=== PATIENT | female | born 1980 | race Caucasian/White ===

== ENCOUNTER 2016-04-20 11:43 | Emergency (ER) | payer MEDICAID ==
[2016-04-20] MEDS ORDERED: KETOROLAC 30 MG/ML VIAL (J1885) As Ordered ONE (12:47)
[2016-04-20] MEDS ORDERED: ONDANSETRON 4MG/2ML VIAL (J2405) As Ordered ONE (12:47)
[2016-04-20 13:05] LABS: BASO # 0.2 K/mm3 (0.0-0.2); BASO % 1.5 % (0.0-1.0); EOS # 0.3 K/mm3 (0.0-0.50); EOS % 3.5 % (0.0-3.0); LARGE UNSTAINED CELL # 0.2 K/mm3 (0.0-0.4); LARGE UNSTAINED CELL % 2.1 % (0.0-4.0); LYMPH % 28.5 % (24.0-44.0); MEAN CORPUSCULAR HEMOGLOBIN 30.7 pg (27.0-33.0); MEAN CORPUSCULAR HGB CONC 31.4 g/dl (32.0-36.5); MEAN CORPUSCULAR VOLUME 97.8 fl (80.0-96.0); MONO # 0.4 K/mm3 (0.0-0.8); MONO % 3.8 % (0.0-5.0); NEUTROPHILS # 5.9 K/mm3 (1.8-7.7); NEUTROPHILS % 60.6 % (36.0-66.0); PLATELET COUNT, AUTOMATED 200 k/mm3 (150-450); RED CELL DISTRIBUTION WIDTH 13.8 % (11.5-14.5); WHITE BLOOD COUNT 9.7 K/mm3 (4.0-10.0)
--- NOTE | 2016-04-20 13:27 | REP ---
CT abdomen and pelvis without IV or oral contrast: Renal stone protocol. History: Renal colic. CT findings: Digital laboratory animal facility supervisor radiograph demonstrates tubal ligation clamps bilaterally in the pelvis. Axial CT images demonstrate that the lung bases are clear. The liver and the spleen are normal in size, homogeneous in texture. There is a low-density lesion in the region of the right adrenal gland consistent with a benign adenoma. This measures 2 cm in greatest diameter. It has a mean noncontrast CT Hounsfield unit density of -3. The left adrenal is normal. No pancreatic abnormality is appreciated. No gallbladder abnormality is observed. 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 At mid polar level in the left kidney, there is a 8 mm calculus. There is no evidence of hydronephrosis of either renal moiety. No uterine abnormality is seen. No pelvic mass or adenopathy is seen. Urinary bladder is intact. Impression: 1. Horseshoe kidney anomaly. 2. 8 mm intrarenal calculus left renal moiety. 3. No hydronephrosis seen. 4. Status post tubal ligation. Signed by Brandon Jolly MD 04/20/2016 01:44 P
[2016-04-20 13:28] LABS: ALBUMIN 3.9 GM/DL (3.2-5.2); ALKALINE PHOSPHATASE 101 U/L (45-117); ALT/SGPT 18 U/L (12-78); AMYLASE 83 U/L (25-115); ANION GAP 6 MEQ/L (8-16); AST/SGOT 16 U/L (15-37); BILIRUBIN,DIRECT < 0.1 MG/DL (0.0-0.2); BILIRUBIN,TOTAL 0.5 MG/DL (0.2-1.0); BLOOD UREA NITROGEN 8 MG/DL (7-18); CALCIUM LEVEL 8.5 MG/DL (8.5-10.1); CARBON DIOXIDE LEVEL 27 MEQ/L (21-32); CHLORIDE LEVEL 107 MEQ/L (98-107); CREATININE FOR GFR 0.62 MG/DL (0.55-1.02); GLOMERULAR FILTRATION RATE > 60.0 (>60); GLUCOSE, FASTING 85 MG/DL (70-105); POTASSIUM SERUM 4.5 MEQ/L (3.5-5.1); SODIUM LEVEL 140 MEQ/L (136-145); TOTAL PROTEIN 7.8 GM/DL (6.4-8.2)
--- NOTE | 2016-04-20 13:43 | REP ---
RIGHT UPPER QUADRANT ULTRASOUND: Real-time sonographic evaluation of the right upper quadrant performed. Gallbladder demonstrates no evidence of intraluminal sludge or calculi, wall thickening, or pericholecystic fluid. There is no intrahepatic or extrahepatic biliary dilatation, common bile duct measuring 2 mm in diameter. Liver and pancreas demonstrate homogenous echotexture with no gross mass. Right kidney demonstrates no hydronephrosis with a length of 8.9 cm. There is no ascites. IMPRESSION: Essentially negative right upper quadrant ultrasound. Signed by Trevin Peck MD 04/20/2016 05:04 P
--- NOTE | 2016-04-20 13:56 | REP ---
PELVIC ULTRASOUND: Real-time sonographic evaluation of the pelvis is performed utilizing transabdominal and endovaginal technique. The urinary bladder is empty. The uterus measures 8.7 x 5.1 x 6.3 cm. There is a small amount of endometrial fluid. Endometrial thickness is 5 mm. The right ovary measures 3.3 x 2.7 x 2.1 cm and the left ovary 2.8 x 3.9 x 1.9 cm. Dominant follicle in the left ovary measures 1.9 cm in diameter. There is no other evidence of adnexal mass or free fluid. There is no evidence of ovarian torsion, with blood flow seen in each ovary with duplex Doppler evaluation, RI of the right ovary is 0.58 and the left ovary 0.38. No IUD is seen. IMPRESSION: Dominant follicle left ovary. No torsion or free fluid. Small amount of endometrial fluid. Signed by Trevin Peck MD 04/20/2016 05:04 P
--- NOTE | 2016-04-20 15:03 | EDDOCDS ---
Nurse's Notes [facility] Name: Veronica Michele Age: 35 yrs Sex: Female : 1980 Arrival Date: 04/20/2016 Time: 11:43 Bed I2 / M2 Private MD: Henrry Narayan N Diagnosis: Other ovarian cysts-Left;Calculus of kidney-8mm intrarenal calculus left renal moiety, no hydronephrosis, normal labs today;Upper abdominal pain, unspecified Presentation: 04/20 12:01 Presenting complaint: Patient states: cramping and spotting - pressure and pain in hs1 pelvis. Patient states was supposed to have a pelvic ultrasound because patient has been spotting and cramping for a couple weeks. Patient states when she walks the pain gets worse. Patient states mild nausea. Risk factors: the patient reports a small or scant amount of vaginal bleeding. Adult Sepsis Screening: The patient does not have new or worsening altered mentation. Patient's respiratory rate is less than 22. Systolic blood pressure is greater than 100. Patient has a qSOFA score of 0- Negative Sepsis Screen. Suicide/Homicide risk assessment- the patient denies having any suicidal and/or homicidal ideations and does not present with any other emotional, behavioral or mental health complaints. Status: Patient is not a assistant service manager or dependent. Transition of care: patient was not received from another setting of care. 12:01 Acuity: SAGE Level 3 hs1 12:01 Method Of Arrival: Walkin/Carried/Asstd hs1 Triage Assessment: 12:03 General: Appears uncomfortable, Behavior is appropriate for age, cooperative. Pain: hs1 Location: pelvis Pain currently is 10 out of 10 on a pain scale. HIV screening NA for this visit Offered previously. GI: Reports nausea. Historical: - Allergies: No known drug Allergies; - Home Meds: 1. gabapentin 300 mg Oral tab nightly 2. bupropion HCl 300 mg Oral Tb24 once daily (Last dose: 04/19/2016 10:00) - PMHx: Anxiety; Depression; Scoliosis; - PSHx: Tubal ligation; ; - Social history: Smoking status: Patient uses tobacco products, heavy tobacco smoker. No barriers to communication noted, The patient speaks fluent Congolese, Speaks appropriately for age. - Family history: Not pertinent. - : The pt / caregiver states he / she is not on anticoagulants. Home medication list is obtained from the patient. - Exposure Risk Screening:: None identified. Screenin:54 Screening information is obtained from the patient. Fall risk: No risks identified. jmk Assistance ADL's: requires no assistance with activities of daily living. Abuse/DV Screen: The patient / caregiver reports he/she is: not in a situation that causes fear, pain or injury. Nutritional screening: No deficits noted. Advance Directives: Currently, there is no health care proxy. There is no active DNR order. There is no living will. There is no Power of Pile Trimmer. Advance directive information has not previously been placed in an [facility] medical record. Further advance directive information is declined. home support is adequate. Assessment: 12:54 General: Appears skin warm and dry color satisfactory. Moist pink oral mucosa. Appears jmk NAD. Indicates diffuse abdominal pain . NON distended with bowel sounds present x 4. Respiratory: No deficits noted. Airway is patent Respiratory effort is even, unlabored, Respiratory pattern is regular. GI: Abdomen is flat, non- distended Bowel sounds present X 4 quads. Abd is soft X 4 quads Abd is tender to palpation in right upper quadrant, left upper quadrant, right lower quadrant and left lower quadrant. 14:59 General: Appears in no apparent distress, reports 5/10 discomfort. continues to present k as very casual in NAD. Vital Signs: 11:45 BP 122 / 80 RA Sitting (auto/reg); Pulse 76; Resp 18; Temp 97.0; Pulse Ox 100% ; Weight [facility] 47.63 kg (R); Height 5 ft. 3 in. (160.02 cm); Pain 10/10; 14:59 BP 96 / 52; Pulse 71; Resp 16; Temp 98.7; jmk 11:45 Body Mass Index 18.60 (47.63 kg, 160.02 cm) [facility] Vitals: 11:45 Log In Time: April 20, 2016 at 11:40. [facility] ED Course: 11:45 Patient visited by Koffi Canales PCA. jrd 11:45 Henrry Narayan is Private Physician. jrd 11:45 Patient moved to Waiting jrd 11:46 Patient visited by Koffi Canales PCA. jrd 11:46 Patient moved to Pre RCE jrd 12:03 Triage Initiated hs1 12:04 Patient moved to Triage 2 hs1 12:08 Jeanie Canela PA-C is PHCP. ef1 12:08 Mason Tomlin MD is Attending Physician. ef1 12:09 Patient visited by Jeanie Canela PA-C. ef1 12:28 Patient moved to I2 / M2 ml6 12:28 Patient moved to Triage 2 ar3 12:31 Patient moved to I2 / M2 ar3 12:40 Patient visited by Jeanie Canela PA-C. ef1 12:40 Patient moved to Ultrasound am17 12:52 Amylase Sent. jmk 12:53 Basic Metabolic Profile Sent. jmk 12:53 CBC with Diff Sent. jmk 12:53 Lipase Sent. jmk 12:53 Liver Profile Sent. jmk 12:54 The patient / caregiver is instructed regarding the plan of care and ED course. jmk 12:54 Inserted saline lock: 20 gauge in right antecubital area. jmk 12:56 Patient visited by Iker Muhammad RN. jmk 13:19 Patient moved to I2 / M2 am17 13:31 Patient visited by Jeanie Canela PA-C. ef1 13:32 CT ABD & PELVIS: No Contrast Returned. EDMS 13:44 Patient visited by Jeanie Canela PA-C. ef1 13:44 [facility] Payment Agreement was scanned into [employer] and attached to record. lg 14:08 CT ABD & PELVIS: No Contrast Returned. EDMS 14:08 Gallbladder US Returned. EDMS 14:08 -US Pelvic Non-Ob Complete Returned. EDMS 14:41 Henrry Narayan is Referral Physician. ef1 14:41 Kira Joyner MD is Referral Physician. ef1 14:41 Juan M Pacheco is Referral Physician. ef1 14:41 Trevin Burgess DO is Referral Physician. ef1 14:59 Discontinued lock intact, bleeding controlled, pressure dressing applied, No jmk redness/swelling at site. No procedures done that require assistance. Administered Medications: 12:54 Drug: NS 0.9% 1000 ml [sodium chloride 0.9 % intravenous solution] Route: IV; Rate: dls bolus; Site: right antecubital; 12:54 Drug: Ondansetron 4 mg [ondansetron HCl 2 mg/mL intravenous solution (2 mL)] Route: dls IVP; Site: right antecubital; 12:54 Drug: ketorolac 30 mg [ketorolac 30 mg/mL (1 mL) injection solution (1 mL)] Route: IVP; dls Site: right antecubital; Order Results: Lab Order: Amylase; SPEC'M 04/20/16 12:43 Test: AMYLASE; Value: 83; Range: 25-115; Units: U/L; Status: F Lab Order: Basic Metabolic Profile; SPEC'M 04/20/16 12:43 Test: GLUCOSE, FASTING; Value: 85; Range: 70-105; Units: MG/DL; Status: F Test: BLOOD UREA NITROGEN; Value: 8; Range: 7-18; Units: MG/DL; Status: F Test: CREATININE FOR GFR; Value: 0.62; Range: 0.55-1.02; Units: MG/DL; Status: F Test: GLOMERULAR FILTRATION RATE; Value: > 60.0; Range: >60; Status: F Test: SODIUM LEVEL; Value: 140; Range: 136-145; Units: MEQ/L; Status: F Test: POTASSIUM SERUM; Value: 4.5; Range: 3.5-5.1; Units: MEQ/L; Status: F Test: CHLORIDE LEVEL; Value: 107; Range: 98-107; Units: MEQ/L; Status: F Test: CARBON DIOXIDE LEVEL; Value: 27; Range: 21-32; Units: MEQ/L; Status: F Test: ANION GAP; Value: 6; Range: 8-16; Abnormal: Below low normal; Units: MEQ/L; Status: F Test: CALCIUM LEVEL; Value: 8.5; Range: 8.5-10.1; Units: MG/DL; Status: F Test Note: ; Units are mL/min/1.73 m2 Chronic Kidney Disease Staging per NKF: Stage I & II GFR >=60 Normal to Mildly Decreased Stage III GFR 30-59 Moderately Decreased Stage IV GFR 15-29 Severely Decreased Stage V GFR <15 Very Little GFR Left ESRD GFR <15 on BODS DEVELOPER Lab Order: CBC with Diff; SPEC'M 04/20/16 12:43 Test: WHITE BLOOD COUNT; Value: 9.7; Range: 4.0-10.0; Units: K/mm3; Status: F Test: RED BLOOD COUNT; Value: 4.88; Range: 4.00-5.40; Units: M/mm3; Status: F Test: HEMOGLOBIN; Value: 15.0; Range: 12.0-16.0; Units: g/dl; Status: F Test: HEMATOCRIT; Value: 47.7; Range: 36.0-47.0; Abnormal: Above high normal; Units: %; Status: F Test: MEAN CORPUSCULAR VOLUME; Value: 97.8; Range: 80.0-96.0; Abnormal: Above high normal; Units: fl; Status: F Test: MEAN CORPUSCULAR HEMOGLOBIN; Value: 30.7; Range: 27.0-33.0; Units: pg; Status: F Test: MEAN CORPUSCULAR HGB CONC; Value: 31.4; Range: 32.0-36.5; Abnormal: Below low normal; Units: g/dl; Status: F Test: RED CELL DISTRIBUTION WIDTH; Value: 13.8; Range: 11.5-14.5; Units: %; Status: F Test: PLATELET COUNT, AUTOMATED; Value: 200; Range: 150-450; Units: k/mm3; Status: F Test: NEUTROPHILS %; Value: 60.6; Range: 36.0-66.0; Units: %; Status: F Test: LYMPH %; Value: 28.5; Range: 24.0-44.0; Units: %; Status: F Test: MONO %; Value: 3.8; Range: 0.0-5.0; Units: %; Status: F Test: EOS %; Value: 3.5; Range: 0.0-3.0; Abnormal: Above high normal; Units: %; Status: F Test: BASO %; Value: 1.5; Range: 0.0-1.0; Abnormal: Above high normal; Units: %; Status: F Test: LARGE UNSTAINED CELL %; Value: 2.1; Range: 0.0-4.0; Units: %; Status: F Test: NEUTROPHILS #; Value: 5.9; Range: 1.8-7.7; Units: K/mm3; Status: F Test: LYMPH #; Value: 3.0; Range: 1.5-4.5; Units: K/mm3; Status: F Test: MONO #; Value: 0.4; Range: 0.0-0.8; Units: K/mm3; Status: F Test: EOS #; Value: 0.3; Range: 0.0-0.50; Units: K/mm3; Status: F Test: BASO #; Value: 0.2; Range: 0.0-0.2; Units: K/mm3; Status: F Test: LARGE UNSTAINED CELL #; Value: 0.2; Range: 0.0-0.4; Units: K/mm3; Status: F Lab Order: Lipase; [facility]' 04/20/16 12:43 Test: LIPASE; Value: 133; Range: 73-393; Units: U/L; Status: F Lab Order: Liver Profile; [facility] 04/20/16 12:43 Test: AST/SGOT; Value: 16; Range: 15-37; Units: U/L; Status: F Test: ALT/SGPT; Value: 18; Range: 12-78; Units: U/L; Status: F Test: ALKALINE PHOSPHATASE; Value: 101; Range: 45-117; Units: U/L; Status: F Test: BILIRUBIN,TOTAL; Value: 0.5; Range: 0.2-1.0; Units: MG/DL; Status: F Test: BILIRUBIN,DIRECT; Value: < 0.1; Range: 0.0-0.2; Units: MG/DL; Status: F Test: TOTAL PROTEIN; Value: 7.8; Range: 6.4-8.2; Units: GM/DL; Status: F Test: ALBUMIN; Value: 3.9; Range: 3.2-5.2; Units: GM/DL; Status: F Test: ALBUMIN/GLOBULIN RATIO; Value: 1.00; Range: 1.00-1.93; Status: F Lab Order: Urinalysis; [facility] 04/20/16 12:30 Test: APPEARANCE, URINE; Value: HAZY; Range: CLEAR; Status: F Test: COLOR, URINE; Value: YELLOW; Range: YELLOW; Status: F Test: PH,URINE; Value: 7.0; Range: 5.0-9.0; Units: UNITS; Status: F Test: SPECIFIC GRAVITY URINE AUTO; Value: 1.017; Range: 1.002-1.035; Status: F Test: PROTEIN, URINE AUTO; Value: NEGATIVE; Range: NEGATIVE; Units: mg/dL; Status: F Test: GLUCOSE, URINE (UA) AUTO; Value: NEGATIVE; Range: NEGATIVE; Units: mg/dL; Status: F Test: KETONE, URINE AUTO; Value: NEGATIVE; Range: NEGATIVE; Units: mg/dL; Status: F Test: UROBILINOGEN, URINE AUTO; Value: 0.2; Range: 0.0-2.0; Units: mg/dL; Status: F Test: BILIRUBIN, URINE AUTO; Value: NEGATIVE; Range: NEGATIVE; Status: F Test: NITRITE, URINE AUTO; Value: NEGATIVE; Range: NEGATIVE; Status: F Test: LEUKOCYTE ESTERASE, URINE AUTO; Value: TRACE; Range: NEGATIVE; Abnormal: Above high normal; Status: F Test: BLOOD, URINE BLOOD; Value: NEGATIVE; Range: NEGATIVE; Status: F Test: WBC, URINE AUTO; Value: 2; Range: 0-3; Units: /HPF; Status: F Test: RBC, URINE AUTO; Value: 2; Range: 0-3; Units: /HPF; Status: F Test: BACTERIA, URINE AUTO; Value: NEGATIVE; Range: NEGATIVE; Status: F Test: SQUAMOUS EPITHELIAL CELL UR AU; Value: 4; Range: 0-6; Units: /HPF; Status: F Test: MUCUS, URINE; Value: SMALL; Range: NEGATIVE; Status: F Test: HYALINE CAST, URINE AUTO; Value: 0; Range: 0-1; Units: /LPF; Status: F Test: AMORPHOUS SEDIMENT; Value: MODERATE; Range: NEGATIVE; Abnormal: Above high normal; Status: F Radiology Order: CT ABD & PELVIS: No Contrast Test: CT ABD & PELVIS: No Contrast REASON FOR EXAMINATION: Renal colic; CT abdomen and pelvis without IV or oral contrast: Renal stone protocol.; ; History: Renal colic.; ; CT findings: Digital guest relations officer radiograph demonstrates tubal ligation clamps; bilaterally in the pelvis. Axial CT images demonstrate that the lung bases are; clear. The liver and the spleen are normal in size, homogeneous in texture.; There is a low-density lesion in the region of the right adrenal gland consistent; with a benign adenoma. This measures 2 cm in greatest diameter. It has a mean; noncontrast CT Hounsfield unit density of -3. The left adrenal is normal. No; pancreatic abnormality is appreciated. 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 At mid polar level in; the left kidney, there is a 8 mm calculus. There is no evidence of; hydronephrosis of either renal moiety. No uterine abnormality is seen. No; pelvic mass or adenopathy is seen. Urinary bladder is intact.; ; Impression:; ; 1. Horseshoe kidney anomaly.; ; 2. 8 mm intrarenal calculus left renal moiety.; ; 3. No hydronephrosis seen.; ; 4. Status post tubal ligation.; ; ; Signed by; Brandon Jolly MD 04/20/2016 01:44 P; Radiology Order: Gallbladder US Test: Gallbladder US REASON FOR EXAMINATION: Biliary Colic; ; RIGHT UPPER QUADRANT ULTRASOUND:; ; Real-time sonographic evaluation of the right upper quadrant performed.; Gallbladder demonstrates no evidence of intraluminal sludge or calculi, wall; thickening, or pericholecystic fluid. There is no intrahepatic or extrahepatic; biliary dilatation, common bile duct measuring 2 mm in diameter. Liver and; pancreas demonstrate homogenous echotexture with no gross mass. Right kidney; demonstrates no hydronephrosis with a length of 8.9 cm. There is no ascites.; ; IMPRESSION:; Essentially negative right upper quadrant ultrasound.; ; ; ; Unreviewed; Radiology Order: -US Pelvic Non-Ob Complete Test: -US Pelvic Non-Ob Complete REASON FOR EXAMINATION: Adnexal Pain r/o Torsion; ; PELVIC ULTRASOUND:; ; Real-time sonographic evaluation of the pelvis is performed utilizing; transabdominal and endovaginal technique. The urinary bladder is empty. The; uterus measures 8.7 x 5.1 x 6.3 cm. There is a small amount of endometrial fluid.; Endometrial thickness is 5 mm. The right ovary measures 3.3 x 2.7 x 2.1 cm and; the left ovary 2.8 x 3.9 x 1.9 cm. Dominant follicle in the left ovary measures; 1.9 cm in diameter. There is no other evidence of adnexal mass or free fluid.; There is no evidence of ovarian torsion, with blood flow seen in each ovary with; duplex Doppler evaluation, RI of the right ovary is 0.58 and the left ovary 0.38.; No IUD is seen.; ; IMPRESSION:; Dominant follicle left ovary. No torsion or free fluid. Small amount of; endometrial fluid.; ; Unreviewed; Outcome: 14:41 Discharge ordered by Provider. ef1 14:59 Discharge Assessment: Patient awake, alert and oriented x 3. No cognitive and/or jmk functional deficits noted. Patient verbalized understanding of disposition instructions. patient administered narcotics - no. The following High Risk Discharge criteria are identified: None. Discharged to home ambulatory. Condition: good. Discharge instructions given to patient, Instructed on discharge instructions, follow up and referral plans. medication usage, Demonstrated understanding of instructions, medications, Pt was receptive of discharge instructions/ teaching. Prescriptions given X 2. Ultrasound Study completed. Property :Personal belongings accompany Pt. 15:01 Patient left the ED. kathy Signatures: Dispatcher [employer] EDMS Iker Muhammad RN RN jmk Scott, Debra, RN RN Ayala Lizama, Mekhi Reg Jeanie Canela, PA-C PA-C ef1 Ollie Rowley, RN RN ml6 Tia Ambriz, FUR CLEANER FUR CLEANER ar3 Dipika Main RN RN hs1 Gail Mazariegos am17 Koffi Canales, FUR CLEANER FUR CLEANER jrd MTDD
--- NOTE | 2016-04-20 15:03 | EDDOCDS ---
Physician Documentation [facility] Name: Veronica Michele Age: 35 yrs Sex: Female : 1980 Arrival Date: 04/20/2016 Time: 11:43 Bed I2 / M2 Private MD: Henrry Narayan N Disposition: 04/20/16 14:41 Discharged to Home/Self Care. Impression: Other ovarian cysts - Left, Calculus of kidney - 8mm intrarenal calculus left renal moiety, no hydronephrosis, normal labs today, Upper abdominal pain, unspecified. - Condition is Stable. - Discharge Instructions: Abdominal Pain, Adult, Kidney Stones, Ovarian Cyst. - Prescriptions for Naprosyn 500 mg Oral Tablet - take 1 tablet by ORAL route 2 times per day take with food; 30 tablet. ZOFRAN ODT 4 mg - dissolve 1 tablet by ORAL route 4 times per day As needed do not chew, do not swallow whole; 10 tablet. - Medication Reconciliation, Local Pharmacy Hours form. - Follow up: Henrry Narayan; When: 1 - 2 days; Reason: Recheck today's complaints, Continuance of care. Follow up: Kira Joyner; When: Call to arrange an appointment; Reason: Further diagnostic work-up, Recheck today's complaints, Continuance of care. Follow up: Juan M Pacheco; When: 1 - 2 days; Reason: Further diagnostic work-up, Recheck today's complaints, Continuance of care. Follow up: Trevin Burgess; When: Call to arrange an appointment; Reason: Further diagnostic work-up, Recheck today's complaints, Continuance of care. Follow up: Emergency Department; Reason: Worsening of conditions. - Problem is new. - Symptoms have improved. Historical: - Allergies: No known drug Allergies; - Home Meds: 1. gabapentin 300 mg Oral tab nightly 2. bupropion HCl 300 mg Oral Tb24 once daily (Last dose: 04/19/2016 10:00) - PMHx: Anxiety; Depression; Scoliosis; - PSHx: Tubal ligation; ; - Social history: Smoking status: Patient uses tobacco products, heavy tobacco smoker. No barriers to communication noted, The patient speaks fluent Serbian, Speaks appropriately for age. - Family history: Not pertinent. - : The pt / caregiver states he / she is not on anticoagulants. Home medication list is obtained from the patient. - Exposure Risk Screening:: None identified. Vital Signs: 04/20 11:45 BP 122 / 80 RA Sitting (auto/reg); Pulse 76; Resp 18; Temp 97.0; Pulse Ox 100% ; Weight jrd 47.63 kg / 105.01 lbs (R); Height 5 ft. 3 in. (160.02 cm); Pain 10/10; 14:59 BP 96 / 52; Pulse 71; Resp 16; Temp 98.7; jmk 11:45 Body Mass Index 18.60 (47.63 kg, 160.02 cm) jrd MDM: 12:12 Financial registration complete. lg 12:27 NS 0.9% 1000 ml IV at bolus once ordered. ef1 12:27 Ondansetron 4 mg IVP once ordered. ef1 12:27 ketorolac 30 mg IVP once ordered. ef1 12:27 IV Saline Lock ordered. ef1 12:27 Undress patient appropriately for examination ordered. ef1 12:28 Amylase Ordered. EDMS 12:28 Basic Metabolic Profile Ordered. EDMS 12:28 CBC with Diff Ordered. EDMS 12:28 Lipase Ordered. EDMS 12:28 Liver Profile Ordered. EDMS 12:28 Urinalysis Ordered. EDMS 12:29 Urine Culture Ordered. EDMS 12:29 Gallbladder US Ordered. EDMS 12:29 CT ABD & PELVIS: No Contrast Ordered. EDMS 12:29 NOTHING BY MOUTH+DIET ordered. EDMS 12:29 -US Pelvic Non-Ob Complete Ordered. EDMS 12:31 DUPLEX SCAN LIMITED (DOPPLER)+US Ordered. EDMS 13:23 Transvaginal NON- US Ordered. EDMS 13:44 [facility] Payment Agreement was scanned into [employer] and attached to record. lg 13:44 Basic Metabolic Profile Reviewed. ef1 13:44 CBC with Diff Reviewed. ef1 13:44 Urinalysis Reviewed. ef1 13:44 Amylase Reviewed. ef1 13:44 Lipase Reviewed. ef1 13:44 Liver Profile Reviewed. ef1 13:44 CT ABD & PELVIS: No Contrast Reviewed. ef1 Administered Medications: 12:54 Drug: NS 0.9% 1000 ml [sodium chloride 0.9 % intravenous solution] Route: IV; Rate: dls bolus; Site: right antecubital; 12:54 Drug: Ondansetron 4 mg [ondansetron HCl 2 mg/mL intravenous solution (2 mL)] Route: dls IVP; Site: right antecubital; 12:54 Drug: ketorolac 30 mg [ketorolac 30 mg/mL (1 mL) injection solution (1 mL)] Route: IVP; dls Site: right antecubital; Signatures: Dispatcher [employer] Iker KellyRN RN Ayala Arguelles, Mekhi Gaming Jeanie Canela, PA-C PA-C ef1 Dipika Main RN RN hs1 Alexandra Lopez RN dls The chart was reviewed and I authenticate all verbal orders and agree with the evaluation and treatment provided.Attachments: 13:44 [facility] Payment Agreement lg MTDD
--- NOTE | 2016-04-22 16:03 | EDDOCDS ---
Physician Documentation [facility] Name: Veronica Michele Age: 35 yrs Sex: Female : 1980 Arrival Date: 04/20/2016 Time: 11:43 Bed I2 / M2 Private MD: Henrry Narayan N Disposition: 04/20/16 14:41 Discharged to Home/Self Care. Impression: Other ovarian cysts - Left, Calculus of kidney - 8mm intrarenal calculus left renal moiety, no hydronephrosis, normal labs today, Upper abdominal pain, unspecified. - Condition is Stable. - Discharge Instructions: Abdominal Pain, Adult, Kidney Stones, Ovarian Cyst. - Prescriptions for Naprosyn 500 mg Oral Tablet - take 1 tablet by ORAL route 2 times per day take with food; 30 tablet. ZOFRAN ODT 4 mg - dissolve 1 tablet by ORAL route 4 times per day As needed do not chew, do not swallow whole; 10 tablet. - Medication Reconciliation, Local Pharmacy Hours form. - Follow up: Henrry Narayan; When: 1 - 2 days; Reason: Recheck today's complaints, Continuance of care. Follow up: Kira Joyner; When: Call to arrange an appointment; Reason: Further diagnostic work-up, Recheck today's complaints, Continuance of care. Follow up: Juan M Pacheco; When: 1 - 2 days; Reason: Further diagnostic work-up, Recheck today's complaints, Continuance of care. Follow up: Trevin Burgess; When: Call to arrange an appointment; Reason: Further diagnostic work-up, Recheck today's complaints, Continuance of care. Follow up: Emergency Department; Reason: Worsening of conditions. - Problem is new. - Symptoms have improved. Historical: - Allergies: No known drug Allergies; - Home Meds: 1. gabapentin 300 mg Oral tab nightly 2. bupropion HCl 300 mg Oral Tb24 once daily (Last dose: 04/19/2016 10:00) - PMHx: Anxiety; Depression; Scoliosis; - PSHx: Tubal ligation; ; - Social history: Smoking status: Patient uses tobacco products, heavy tobacco smoker. No barriers to communication noted, The patient speaks fluent Mongolian, Speaks appropriately for age. - Family history: Not pertinent. - : The pt / caregiver states he / she is not on anticoagulants. Home medication list is obtained from the patient. - Exposure Risk Screening:: None identified. Vital Signs: 04/20 11:45 BP 122 / 80 RA Sitting (auto/reg); Pulse 76; Resp 18; Temp 97.0; Pulse Ox 100% ; Weight jrd 47.63 kg / 105.01 lbs (R); Height 5 ft. 3 in. (160.02 cm); Pain 10/10; 14:59 BP 96 / 52; Pulse 71; Resp 16; Temp 98.7; jmk 11:45 Body Mass Index 18.60 (47.63 kg, 160.02 cm) jrd MDM: 12:12 Financial registration complete. lg 12:27 NS 0.9% 1000 ml IV at bolus once ordered. ef1 12:27 Ondansetron 4 mg IVP once ordered. ef1 12:27 ketorolac 30 mg IVP once ordered. ef1 12:27 IV Saline Lock ordered. ef1 12:27 Undress patient appropriately for examination ordered. ef1 12:28 Amylase Ordered. EDMS 12:28 Basic Metabolic Profile Ordered. EDMS 12:28 CBC with Diff Ordered. EDMS 12:28 Lipase Ordered. EDMS 12:28 Liver Profile Ordered. EDMS 12:28 Urinalysis Ordered. EDMS 12:29 Urine Culture Ordered. EDMS 12:29 Gallbladder US Ordered. EDMS 12:29 CT ABD & PELVIS: No Contrast Ordered. EDMS 12:29 NOTHING BY MOUTH+DIET ordered. EDMS 12:29 -US Pelvic Non-Ob Complete Ordered. EDMS 12:31 DUPLEX SCAN LIMITED (DOPPLER)+US Ordered. EDMS 13:23 Transvaginal NON- US Ordered. EDMS 13:44 [facility] Payment Agreement was scanned into [employer] and attached to record. lg 13:44 Basic Metabolic Profile Reviewed. ef1 13:44 CBC with Diff Reviewed. ef1 13:44 Urinalysis Reviewed. ef1 13:44 Amylase Reviewed. ef1 13:44 Lipase Reviewed. ef1 13:44 Liver Profile Reviewed. ef1 13:44 CT ABD & PELVIS: No Contrast Reviewed. ef1 04/21 12:42 T-Sheet-- Draft Copy was scanned into [employer] and attached to record. gb 12:43 Radiology Report was scanned into [employer] and attached to record. gb Administered Medications: 04/20 12:54 Drug: NS 0.9% 1000 ml [sodium chloride 0.9 % intravenous solution] Route: IV; Rate: dls bolus; Site: right antecubital; 12:54 Drug: Ondansetron 4 mg [ondansetron HCl 2 mg/mL intravenous solution (2 mL)] Route: dls IVP; Site: right antecubital; 12:54 Drug: ketorolac 30 mg [ketorolac 30 mg/mL (1 mL) injection solution (1 mL)] Route: IVP; dls Site: right antecubital; Signatures: Dispatcher [employer] EDMS Iker Muhammad,RN RN jmk Fannie Vaughn, Reg Reg gb Ayala Ceballos, Reg Reg lg Jeanie Canela PA-C PA-C ef1 Dipika Main RN RN hs1 Alexandra Lopez RN dls The chart was reviewed and I authenticate all verbal orders and agree with the evaluation and treatment provided.Attachments: 13:44 [facility] [place] Payment Agreement lg 04/21 12:42 T-Sheet-- Draft Copy Chart Complete MTDD
--- NOTE | 2016-04-22 16:03 | EDDOCDS ---
Physician Documentation [facility] Name: Veronica Michele Age: 35 yrs Sex: Female : 1980 Arrival Date: 04/20/2016 Time: 11:43 Bed I2 / M2 Private MD: Henrry Narayan N Disposition: 04/20/16 14:41 Discharged to Home/Self Care. Impression: Other ovarian cysts - Left, Calculus of kidney - 8mm intrarenal calculus left renal moiety, no hydronephrosis, normal labs today, Upper abdominal pain, unspecified. - Condition is Stable. - Discharge Instructions: Abdominal Pain, Adult, Kidney Stones, Ovarian Cyst. - Prescriptions for Naprosyn 500 mg Oral Tablet - take 1 tablet by ORAL route 2 times per day take with food; 30 tablet. ZOFRAN ODT 4 mg - dissolve 1 tablet by ORAL route 4 times per day As needed do not chew, do not swallow whole; 10 tablet. - Medication Reconciliation, Local Pharmacy Hours form. - Follow up: Henrry Narayan; When: 1 - 2 days; Reason: Recheck today's complaints, Continuance of care. Follow up: Kira Joyner; When: Call to arrange an appointment; Reason: Further diagnostic work-up, Recheck today's complaints, Continuance of care. Follow up: Juan M Pacheco; When: 1 - 2 days; Reason: Further diagnostic work-up, Recheck today's complaints, Continuance of care. Follow up: Trevin Burgess; When: Call to arrange an appointment; Reason: Further diagnostic work-up, Recheck today's complaints, Continuance of care. Follow up: Emergency Department; Reason: Worsening of conditions. - Problem is new. - Symptoms have improved. Historical: - Allergies: No known drug Allergies; - Home Meds: 1. gabapentin 300 mg Oral tab nightly 2. bupropion HCl 300 mg Oral Tb24 once daily (Last dose: 04/19/2016 10:00) - PMHx: Anxiety; Depression; Scoliosis; - PSHx: Tubal ligation; ; - Social history: Smoking status: Patient uses tobacco products, heavy tobacco smoker. No barriers to communication noted, The patient speaks fluent Danish, Speaks appropriately for age. - Family history: Not pertinent. - : The pt / caregiver states he / she is not on anticoagulants. Home medication list is obtained from the patient. - Exposure Risk Screening:: None identified. Vital Signs: 04/20 11:45 BP 122 / 80 RA Sitting (auto/reg); Pulse 76; Resp 18; Temp 97.0; Pulse Ox 100% ; Weight jrd 47.63 kg / 105.01 lbs (R); Height 5 ft. 3 in. (160.02 cm); Pain 10/10; 14:59 BP 96 / 52; Pulse 71; Resp 16; Temp 98.7; jmk 11:45 Body Mass Index 18.60 (47.63 kg, 160.02 cm) jrd MDM: 12:12 Financial registration complete. lg 12:27 NS 0.9% 1000 ml IV at bolus once ordered. ef1 12:27 Ondansetron 4 mg IVP once ordered. ef1 12:27 ketorolac 30 mg IVP once ordered. ef1 12:27 IV Saline Lock ordered. ef1 12:27 Undress patient appropriately for examination ordered. ef1 12:28 Amylase Ordered. EDMS 12:28 Basic Metabolic Profile Ordered. EDMS 12:28 CBC with Diff Ordered. EDMS 12:28 Lipase Ordered. EDMS 12:28 Liver Profile Ordered. EDMS 12:28 Urinalysis Ordered. EDMS 12:29 Urine Culture Ordered. EDMS 12:29 Gallbladder US Ordered. EDMS 12:29 CT ABD & PELVIS: No Contrast Ordered. EDMS 12:29 NOTHING BY MOUTH+DIET ordered. EDMS 12:29 -US Pelvic Non-Ob Complete Ordered. EDMS 12:31 DUPLEX SCAN LIMITED (DOPPLER)+US Ordered. EDMS 13:23 Transvaginal NON- US Ordered. EDMS 13:44 [facility] Payment Agreement was scanned into [employer] and attached to record. lg 13:44 Basic Metabolic Profile Reviewed. ef1 13:44 CBC with Diff Reviewed. ef1 13:44 Urinalysis Reviewed. ef1 13:44 Amylase Reviewed. ef1 13:44 Lipase Reviewed. ef1 13:44 Liver Profile Reviewed. ef1 13:44 CT ABD & PELVIS: No Contrast Reviewed. ef1 04/21 12:42 T-Sheet-- Draft Copy was scanned into [employer] and attached to record. gb 12:43 Radiology Report was scanned into [employer] and attached to record. gb Administered Medications: 04/20 12:54 Drug: NS 0.9% 1000 ml [sodium chloride 0.9 % intravenous solution] Route: IV; Rate: dls bolus; Site: right antecubital; 12:54 Drug: Ondansetron 4 mg [ondansetron HCl 2 mg/mL intravenous solution (2 mL)] Route: dls IVP; Site: right antecubital; 12:54 Drug: ketorolac 30 mg [ketorolac 30 mg/mL (1 mL) injection solution (1 mL)] Route: IVP; dls Site: right antecubital; Signatures: Dispatcher [employer] EDMS Iker Muhammad,RN RN jmk Fannie Vaughn, Reg Reg gb Ayala Ceballos, Reg Reg lg Jeanie Canela PA-C PA-C ef1 Dipika Main RN RN hs1 Alexandra Lopez RN dls The chart was reviewed and I authenticate all verbal orders and agree with the evaluation and treatment provided.Attachments: 13:44 [facility] [place] Payment Agreement lg 04/21 12:42 T-Sheet-- Draft Copy Chart Complete MTDD
--- NOTE | 2016-04-22 16:03 | EDDOCDS ---
Nurse's Notes [facility] Name: Veronica Michele Age: 35 yrs Sex: Female : 1980 Arrival Date: 04/20/2016 Time: 11:43 Bed I2 / M2 Private MD: Henrry Narayan N Diagnosis: Other ovarian cysts-Left;Calculus of kidney-8mm intrarenal calculus left renal moiety, no hydronephrosis, normal labs today;Upper abdominal pain, unspecified Presentation: 04/20 12:01 Presenting complaint: Patient states: cramping and spotting - pressure and pain in hs1 pelvis. Patient states was supposed to have a pelvic ultrasound because patient has been spotting and cramping for a couple weeks. Patient states when she walks the pain gets worse. Patient states mild nausea. Risk factors: the patient reports a small or scant amount of vaginal bleeding. Adult Sepsis Screening: The patient does not have new or worsening altered mentation. Patient's respiratory rate is less than 22. Systolic blood pressure is greater than 100. Patient has a qSOFA score of 0- Negative Sepsis Screen. Suicide/Homicide risk assessment- the patient denies having any suicidal and/or homicidal ideations and does not present with any other emotional, behavioral or mental health complaints. Status: Patient is not a bilingual customer service specialist or dependent. Transition of care: patient was not received from another setting of care. 12:01 Acuity: SAGE Level 3 hs1 12:01 Method Of Arrival: Walkin/Carried/Asstd hs1 Triage Assessment: 12:03 General: Appears uncomfortable, Behavior is appropriate for age, cooperative. Pain: hs1 Location: pelvis Pain currently is 10 out of 10 on a pain scale. HIV screening NA for this visit Offered previously. GI: Reports nausea. Historical: - Allergies: No known drug Allergies; - Home Meds: 1. gabapentin 300 mg Oral tab nightly 2. bupropion HCl 300 mg Oral Tb24 once daily (Last dose: 04/19/2016 10:00) - PMHx: Anxiety; Depression; Scoliosis; - PSHx: Tubal ligation; ; - Social history: Smoking status: Patient uses tobacco products, heavy tobacco smoker. No barriers to communication noted, The patient speaks fluent Honduran, Speaks appropriately for age. - Family history: Not pertinent. - : The pt / caregiver states he / she is not on anticoagulants. Home medication list is obtained from the patient. - Exposure Risk Screening:: None identified. Screenin:54 Screening information is obtained from the patient. Fall risk: No risks identified. jmk Assistance ADL's: requires no assistance with activities of daily living. Abuse/DV Screen: The patient / caregiver reports he/she is: not in a situation that causes fear, pain or injury. Nutritional screening: No deficits noted. Advance Directives: Currently, there is no health care proxy. There is no active DNR order. There is no living will. There is no Power of Operator [employer]. Advance directive information has not previously been placed in an [facility] medical record. Further advance directive information is declined. home support is adequate. Assessment: 12:54 General: Appears skin warm and dry color satisfactory. Moist pink oral mucosa. Appears jmk NAD. Indicates diffuse abdominal pain . NON distended with bowel sounds present x 4. Respiratory: No deficits noted. Airway is patent Respiratory effort is even, unlabored, Respiratory pattern is regular. GI: Abdomen is flat, non- distended Bowel sounds present X 4 quads. Abd is soft X 4 quads Abd is tender to palpation in right upper quadrant, left upper quadrant, right lower quadrant and left lower quadrant. 14:59 General: Appears in no apparent distress, reports 5/10 discomfort. continues to present k as very casual in NAD. Vital Signs: 11:45 BP 122 / 80 RA Sitting (auto/reg); Pulse 76; Resp 18; Temp 97.0; Pulse Ox 100% ; Weight [facility] 47.63 kg (R); Height 5 ft. 3 in. (160.02 cm); Pain 10/10; 14:59 BP 96 / 52; Pulse 71; Resp 16; Temp 98.7; jmk 11:45 Body Mass Index 18.60 (47.63 kg, 160.02 cm) [facility] Vitals: 11:45 Log In Time: April 20, 2016 at 11:40. [facility] ED Course: 11:45 Patient visited by Koffi Canales PCA. jrd 11:45 Henrry Narayan is Private Physician. jrd 11:45 Patient moved to Waiting jrd 11:46 Patient visited by Koffi Canales PCA. jrd 11:46 Patient moved to Pre RCE jrd 12:03 Triage Initiated hs1 12:04 Patient moved to Triage 2 hs1 12:08 Jeanie Canela PA-C is PHCP. ef1 12:08 Mason Tomlin MD is Attending Physician. ef1 12:09 Patient visited by Jeanie Canela PA-C. ef1 12:28 Patient moved to I2 / M2 ml6 12:28 Patient moved to Triage 2 ar3 12:31 Patient moved to I2 / M2 ar3 12:40 Patient visited by Jeanie Canela PA-C. ef1 12:40 Patient moved to Ultrasound am17 12:52 Amylase Sent. jmk 12:53 Basic Metabolic Profile Sent. jmk 12:53 CBC with Diff Sent. jmk 12:53 Lipase Sent. jmk 12:53 Liver Profile Sent. jmk 12:54 The patient / caregiver is instructed regarding the plan of care and ED course. jmk 12:54 Inserted saline lock: 20 gauge in right antecubital area. jmk 12:56 Patient visited by Iker Muhammad RN. jmk 13:19 Patient moved to I2 / M2 am17 13:31 Patient visited by Jeanie Canela PA-C. ef1 13:32 CT ABD & PELVIS: No Contrast Returned. EDMS 13:44 Patient visited by Jeanie Canela PA-C. ef1 13:44 [facility] Payment Agreement was scanned into [employer] and attached to record. lg 14:08 CT ABD & PELVIS: No Contrast Returned. EDMS 14:08 Gallbladder US Returned. EDMS 14:08 -US Pelvic Non-Ob Complete Returned. EDMS 14:41 Henrry Narayan is Referral Physician. ef1 14:41 Kira Joyner MD is Referral Physician. ef1 14:41 Juan M Pacheco is Referral Physician. ef1 14:41 Trevin Burgess DO is Referral Physician. ef1 14:59 Discontinued lock intact, bleeding controlled, pressure dressing applied, No jmk redness/swelling at site. No procedures done that require assistance. 04/21 12:42 T-Sheet-- Draft Copy was scanned into [employer] and attached to record. gb 12:43 Radiology Report was scanned into [employer] and attached to record. gb Administered Medications: 04/20 12:54 Drug: NS 0.9% 1000 ml [sodium chloride 0.9 % intravenous solution] Route: IV; Rate: dls bolus; Site: right antecubital; 12:54 Drug: Ondansetron 4 mg [ondansetron HCl 2 mg/mL intravenous solution (2 mL)] Route: dls IVP; Site: right antecubital; 12:54 Drug: ketorolac 30 mg [ketorolac 30 mg/mL (1 mL) injection solution (1 mL)] Route: IVP; dls Site: right antecubital; Order Results: Lab Order: Amylase; SPEC'M 04/20/16 12:43 Test: AMYLASE; Value: 83; Range: 25-115; Units: U/L; Status: F Lab Order: Basic Metabolic Profile; SPEC'M 04/20/16 12:43 Test: GLUCOSE, FASTING; Value: 85; Range: 70-105; Units: MG/DL; Status: F Test: BLOOD UREA NITROGEN; Value: 8; Range: 7-18; Units: MG/DL; Status: F Test: CREATININE FOR GFR; Value: 0.62; Range: 0.55-1.02; Units: MG/DL; Status: F Test: GLOMERULAR FILTRATION RATE; Value: > 60.0; Range: >60; Status: F Test: SODIUM LEVEL; Value: 140; Range: 136-145; Units: MEQ/L; Status: F Test: POTASSIUM SERUM; Value: 4.5; Range: 3.5-5.1; Units: MEQ/L; Status: F Test: CHLORIDE LEVEL; Value: 107; Range: 98-107; Units: MEQ/L; Status: F Test: CARBON DIOXIDE LEVEL; Value: 27; Range: 21-32; Units: MEQ/L; Status: F Test: ANION GAP; Value: 6; Range: 8-16; Abnormal: Below low normal; Units: MEQ/L; Status: F Test: CALCIUM LEVEL; Value: 8.5; Range: 8.5-10.1; Units: MG/DL; Status: F Test Note: ; Units are mL/min/1.73 m2 Chronic Kidney Disease Staging per NKF: Stage I & II GFR >=60 Normal to Mildly Decreased Stage III GFR 30-59 Moderately Decreased Stage IV GFR 15-29 Severely Decreased Stage V GFR <15 Very Little GFR Left ESRD GFR <15 on [employer] Lab Order: CBC with Diff; SPEC'M 04/20/16 12:43 Test: WHITE BLOOD COUNT; Value: 9.7; Range: 4.0-10.0; Units: K/mm3; Status: F Test: RED BLOOD COUNT; Value: 4.88; Range: 4.00-5.40; Units: M/mm3; Status: F Test: HEMOGLOBIN; Value: 15.0; Range: 12.0-16.0; Units: g/dl; Status: F Test: HEMATOCRIT; Value: 47.7; Range: 36.0-47.0; Abnormal: Above high normal; Units: %; Status: F Test: MEAN CORPUSCULAR VOLUME; Value: 97.8; Range: 80.0-96.0; Abnormal: Above high normal; Units: fl; Status: F Test: MEAN CORPUSCULAR HEMOGLOBIN; Value: 30.7; Range: 27.0-33.0; Units: pg; Status: F Test: MEAN CORPUSCULAR HGB CONC; Value: 31.4; Range: 32.0-36.5; Abnormal: Below low normal; Units: g/dl; Status: F Test: RED CELL DISTRIBUTION WIDTH; Value: 13.8; Range: 11.5-14.5; Units: %; Status: F Test: PLATELET COUNT, AUTOMATED; Value: 200; Range: 150-450; Units: k/mm3; Status: F Test: NEUTROPHILS %; Value: 60.6; Range: 36.0-66.0; Units: %; Status: F Test: LYMPH %; Value: 28.5; Range: 24.0-44.0; Units: %; Status: F Test: MONO %; Value: 3.8; Range: 0.0-5.0; Units: %; Status: F Test: EOS %; Value: 3.5; Range: 0.0-3.0; Abnormal: Above high normal; Units: %; Status: F Test: BASO %; Value: 1.5; Range: 0.0-1.0; Abnormal: Above high normal; Units: %; Status: F Test: LARGE UNSTAINED CELL %; Value: 2.1; Range: 0.0-4.0; Units: %; Status: F Test: NEUTROPHILS #; Value: 5.9; Range: 1.8-7.7; Units: K/mm3; Status: F Test: LYMPH #; Value: 3.0; Range: 1.5-4.5; Units: K/mm3; Status: F Test: MONO #; Value: 0.4; Range: 0.0-0.8; Units: K/mm3; Status: F Test: EOS #; Value: 0.3; Range: 0.0-0.50; Units: K/mm3; Status: F Test: BASO #; Value: 0.2; Range: 0.0-0.2; Units: K/mm3; Status: F Test: LARGE UNSTAINED CELL #; Value: 0.2; Range: 0.0-0.4; Units: K/mm3; Status: F Lab Order: Lipase; [facility]' 04/20/16 12:43 Test: LIPASE; Value: 133; Range: 73-393; Units: U/L; Status: F Lab Order: Liver Profile; [facility]' 04/20/16 12:43 Test: AST/SGOT; Value: 16; Range: 15-37; Units: U/L; Status: F Test: ALT/SGPT; Value: 18; Range: 12-78; Units: U/L; Status: F Test: ALKALINE PHOSPHATASE; Value: 101; Range: 45-117; Units: U/L; Status: F Test: BILIRUBIN,TOTAL; Value: 0.5; Range: 0.2-1.0; Units: MG/DL; Status: F Test: BILIRUBIN,DIRECT; Value: < 0.1; Range: 0.0-0.2; Units: MG/DL; Status: F Test: TOTAL PROTEIN; Value: 7.8; Range: 6.4-8.2; Units: GM/DL; Status: F Test: ALBUMIN; Value: 3.9; Range: 3.2-5.2; Units: GM/DL; Status: F Test: ALBUMIN/GLOBULIN RATIO; Value: 1.00; Range: 1.00-1.93; Status: F Lab Order: Urinalysis; [facility]' 04/20/16 12:30 Test: APPEARANCE, URINE; Value: HAZY; Range: CLEAR; Status: F Test: COLOR, URINE; Value: YELLOW; Range: YELLOW; Status: F Test: PH,URINE; Value: 7.0; Range: 5.0-9.0; Units: UNITS; Status: F Test: SPECIFIC GRAVITY URINE AUTO; Value: 1.017; Range: 1.002-1.035; Status: F Test: PROTEIN, URINE AUTO; Value: NEGATIVE; Range: NEGATIVE; Units: mg/dL; Status: F Test: GLUCOSE, URINE (UA) AUTO; Value: NEGATIVE; Range: NEGATIVE; Units: mg/dL; Status: F Test: KETONE, URINE AUTO; Value: NEGATIVE; Range: NEGATIVE; Units: mg/dL; Status: F Test: UROBILINOGEN, URINE AUTO; Value: 0.2; Range: 0.0-2.0; Units: mg/dL; Status: F Test: BILIRUBIN, URINE AUTO; Value: NEGATIVE; Range: NEGATIVE; Status: F Test: NITRITE, URINE AUTO; Value: NEGATIVE; Range: NEGATIVE; Status: F Test: LEUKOCYTE ESTERASE, URINE AUTO; Value: TRACE; Range: NEGATIVE; Abnormal: Above high normal; Status: F Test: BLOOD, URINE BLOOD; Value: NEGATIVE; Range: NEGATIVE; Status: F Test: WBC, URINE AUTO; Value: 2; Range: 0-3; Units: /HPF; Status: F Test: RBC, URINE AUTO; Value: 2; Range: 0-3; Units: /HPF; Status: F Test: BACTERIA, URINE AUTO; Value: NEGATIVE; Range: NEGATIVE; Status: F Test: SQUAMOUS EPITHELIAL CELL UR AU; Value: 4; Range: 0-6; Units: /HPF; Status: F Test: MUCUS, URINE; Value: SMALL; Range: NEGATIVE; Status: F Test: HYALINE CAST, URINE AUTO; Value: 0; Range: 0-1; Units: /LPF; Status: F Test: AMORPHOUS SEDIMENT; Value: MODERATE; Range: NEGATIVE; Abnormal: Above high normal; Status: F Lab Order: Urine Culture; SPEC'M 04/20/16 12:30 Test: URINE CULTURE; Value: <EXTERNAL COMMENT eCWMed> FULL REPORT IN LAB NOTES (eCW and Medent).; Status: F Test: URINE CULTURE; Value: URINE CULTURE RESULT NO GROWTH CLINICAL SIGNIFICANCE 1 ORGANISM; Status: F Radiology Order: CT ABD & PELVIS: No Contrast Test: CT ABD & PELVIS: No Contrast REASON FOR EXAMINATION: Renal colic; CT abdomen and pelvis without IV or oral contrast: Renal stone protocol.; ; History: Renal colic.; ; CT findings: [employer] [place] [employer] radiograph demonstrates tubal ligation clamps; bilaterally in the pelvis. Axial CT images demonstrate that the lung bases are; clear. The liver and the spleen are normal in size, homogeneous in texture.; There is a low-density lesion in the region of the right adrenal gland consistent; with a benign adenoma. This measures 2 cm in greatest diameter. It has a mean; noncontrast CT Hounsfield unit density of -3. The left adrenal is normal. No; pancreatic abnormality is appreciated. 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 At mid polar level in; the left kidney, there is a 8 mm calculus. There is no evidence of; hydronephrosis of either renal moiety. No uterine abnormality is seen. No; pelvic mass or adenopathy is seen. Urinary bladder is intact.; ; Impression:; ; 1. Horseshoe kidney anomaly.; ; 2. 8 mm intrarenal calculus left renal moiety.; ; 3. No hydronephrosis seen.; ; 4. Status post tubal ligation.; ; ; Signed by; Brandon Jolly MD 04/20/2016 01:44 P; Radiology Order: Gallbladder US Test: Gallbladder US REASON FOR EXAMINATION: Biliary Colic; RIGHT UPPER QUADRANT ULTRASOUND:; ; Real-time sonographic evaluation of the right upper quadrant performed.; Gallbladder demonstrates no evidence of intraluminal sludge or calculi, wall; thickening, or pericholecystic fluid. There is no intrahepatic or extrahepatic; biliary dilatation, common bile duct measuring 2 mm in diameter. Liver and; pancreas demonstrate homogenous echotexture with no gross mass. Right kidney; demonstrates no hydronephrosis with a length of 8.9 cm. There is no ascites.; ; IMPRESSION:; ; Essentially negative right upper quadrant ultrasound.; ; ; Signed by; Trevin Peck MD 04/20/2016 05:04 P; Radiology Order: -US Pelvic Non-Ob Complete Test: -US Pelvic Non-Ob Complete REASON FOR EXAMINATION: Adnexal Pain r/o Torsion; PELVIC ULTRASOUND:; ; Real-time sonographic evaluation of the pelvis is performed utilizing; transabdominal and endovaginal technique. The urinary bladder is empty. The; uterus measures 8.7 x 5.1 x 6.3 cm. There is a small amount of endometrial fluid.; Endometrial thickness is 5 mm. The right ovary measures 3.3 x 2.7 x 2.1 cm and; the left ovary 2.8 x 3.9 x 1.9 cm. Dominant follicle in the left ovary measures; 1.9 cm in diameter. There is no other evidence of adnexal mass or free fluid.; There is no evidence of ovarian torsion, with blood flow seen in each ovary with; duplex Doppler evaluation, RI of the right ovary is 0.58 and the left ovary 0.38.; No IUD is seen.; ; IMPRESSION:; ; Dominant follicle left ovary. No torsion or free fluid. Small amount of; endometrial fluid.; ; ; Signed by; Trevin Peck MD 04/20/2016 05:04 P; Outcome: 14:41 Discharge ordered by Provider. ef1 14:59 Discharge Assessment: Patient awake, alert and oriented x 3. No cognitive and/or k functional deficits noted. Patient verbalized understanding of disposition instructions. patient administered narcotics - no. The following High Risk Discharge criteria are identified: None. Discharged to home ambulatory. Condition: good. Discharge instructions given to patient, Instructed on discharge instructions, follow up and referral plans. medication usage, Demonstrated understanding of instructions, medications, Pt was receptive of discharge instructions/ teaching. Prescriptions given X 2. Ultrasound Study completed. Property :Personal belongings accompany Pt. 15:01 Patient left the ED. kathy Signatures: Dispatcher [employer] EDMS Iker Muhammad RN RN jmk Scott, Debra, RN RN dls Barnhardt, Gloria, Reg Reg gb Ayala Ceballos, Reg Reg lg Jeanie Canela, PA-C PA-C ef1 Ollie Rowley, GRACIELA RN ml6 Tia Ambriz, BUILDING INSULATION INSTALLER BUILDING INSULATION INSTALLER ar3 Dipika Main RN RN hs1 Gail Mazariegos am17 Koffi Canales, BUILDING INSULATION INSTALLER BUILDING INSULATION INSTALLER jrd Chart Complete MTDD
== END 2016-04-20 15:01 | disposition home or self-care (01) ==
LOC: M ED 11:43
DX: N83.202 Unspecified ovarian cyst, left side (principal); N20.1 Calculus of ureter; F41.9 Anxiety disorder, unspecified; F32.9 Major depressive disorder, single episode, unspecified; M41.9 Scoliosis, unspecified; Z79.899 Other long term (current) drug therapy; F17.210 Nicotine dependence, cigarettes, uncomplicated
CPT/HCPCS: 36415; 74176; 76705; 76830; 76856; 80048; 80076; 81001; 82150; 83690; 85025; 87086; 93976; 96374; 96375; 99284; J1885; J2405

== ENCOUNTER → 2016-06-01 | Outpatient (REF) | payer OTHER ==
[2016-06-01 14:06] LABS: CALCIUM OXALATE CRYSTALS MODERATE
== END ==
LOC: M SMT 12:48
PROVIDERS: ATTEND Nurse Practitioner Family
DX: R35.0 Frequency of micturition (principal)

== ENCOUNTER → 2016-06-23 | Outpatient (CLI) | payer OTHER ==
[~2016-06-23] MED LIST: BUPR300T34 PO; GABA300C3 PO
[2016-06-23 16:14] LABS: MEAN CORPUSCULAR HEMOGLOBIN 31.6 pg (27.0-33.0); MEAN CORPUSCULAR HGB CONC 33.4 g/dl (32.0-36.5); MEAN CORPUSCULAR VOLUME 94.6 fl (80.0-96.0); RED CELL DISTRIBUTION WIDTH 12.5 % (11.5-14.5); WHITE BLOOD COUNT 11.3 K/mm3 (4.0-10.0)
[2016-06-23 16:29] LABS: ANION GAP 7 MEQ/L (8-16); BLOOD UREA NITROGEN 8 MG/DL (7-18); CALCIUM LEVEL 8.6 MG/DL (8.5-10.1); CARBON DIOXIDE LEVEL 27 MEQ/L (21-32); CHLORIDE LEVEL 106 MEQ/L (98-107); CREATININE FOR GFR 0.56 MG/DL (0.55-1.02); GLOMERULAR FILTRATION RATE > 60.0 (>60); GLUCOSE, FASTING 81 MG/DL (70-105); POTASSIUM SERUM 3.8 MEQ/L (3.5-5.1); SODIUM LEVEL 140 MEQ/L (136-145)
== END ==
LOC: M LAB 15:17
PROVIDERS: ATTEND Nurse Practitioner Family
DX: Z01.818 Encounter for other preprocedural examination (principal); N20.0 Calculus of kidney

== ENCOUNTER → 2016-06-25 | Day surgery (SDC) | payer OTHER ==
[~2016-06-25] VITALS: Ht 160 cm; Wt 47.2 kg
[~2016-06-25] MED LIST changes: +GABA-282 PO; -GABA300C3 PO; +LIDOCAINE 2% INJ 100 MG/5 ML SDV (FOR ANES.) As Ordered ONE; +LR 1,000 ML IV SCH; +ONDANSETRON 4MG/2ML VIAL (J2405) As Ordered ONE; +PERCOCET 5MG/325MG TAB PO PRN; +PROPOFOL 200 MG/20 ML VIAL As Ordered ONE; +ePHEDrine SULFATE 25 MG/5 ML(5MG/ML) SYRINGE As Ordered ONE
--- NOTE | 2016-06-25 08:59 | REP ---
Clinical: Left renal calculus. Technique: Single supine view of the abdomen and pelvis. Findings: A 9 mm calcification is identified overlying the left renal pelvis. Further evaluation of the urinary tract system for calculi is limited by technique and interposed bowel gas. No evidence for bowel obstruction. Prior tubal ligation. No organomegaly. Skeletal structures intact. Impression: 9 mm left renal calculus. Signed by Magdi Barron MD 06/25/2016 08:50 A
[2016-06-25 13:30] VITALS: BP 90/58
--- NOTE | 2016-06-25 15:08 | RO ---
DATE OF PROCEDURE: 06/25/2016: PREPROCEDURE DIAGNOSIS: Left kidney stone. POSTPROCEDURE DIAGNOSIS: Left kidney stone. PROCEDURE: Left extracorporal shockwave lithotripsy. SURGEON: Dr. Juan M Pacheco. ESCAPE WHEEL TOOTH CUTTER: None. ANESTHESIA: MAC. OPERATIVE INDICATIONS: This is a 35-year-old female with a horseshoe kidney who was recently found to have an 8 mm lower pole stone involving the left renal moiety of the horseshoe kidney. It was recommended that she be brought to the operating room today for the above procedure. DESCRIPTION OF PROCEDURE: The patient was brought to the operating room and MAC anesthesia was administered. Prophylactic antibiotics were infused. She was then placed in the supine position, in preparation for a left-sided extracorporal shockwave lithotripsy. Fluoroscopy was utilized to monitor stone position and fragmentation throughout the procedure. Shockwaves were delivered un-gated. There were no arrhythmias. The left-sided kidney stone did appear to fragment well. After 2500 shocks the procedure was concluded. The patient was awakened from anesthesia and sent to the recovery room in stable condition. ESTIMATED BLOOD LOSS: 0 mL COMPLICATIONS: None. SPECIMENS: None. PLAN: The patient will followup in clinic in a few weeks with imaging prior to assess for residual stone burden. VIK
== END | disposition home or self-care (01) ==
LOC: M SDC 07:52
PROVIDERS: ATTEND Urology
DX: N20.0 Calculus of kidney (principal); F41.9 Anxiety disorder, unspecified; F32.9 Major depressive disorder, single episode, unspecified; F17.210 Nicotine dependence, cigarettes, uncomplicated; Z79.899 Other long term (current) drug therapy
CPT/HCPCS: 50590; 74000; J0690; J2405

== ENCOUNTER 2016-07-08 06:40 | Day surgery (SDC) | payer OTHER ==
[~2016-07-08] VITALS: Ht 160 cm; Wt 47.2 kg
[~2016-07-08 06:40] MED LIST changes: -LIDOCAINE 2% INJ 100 MG/5 ML SDV (FOR ANES.) As Ordered ONE; -LR 1,000 ML IV SCH; -ONDANSETRON 4MG/2ML VIAL (J2405) As Ordered ONE; -PERCOCET 5MG/325MG TAB PO PRN; -PROPOFOL 200 MG/20 ML VIAL As Ordered ONE; -ePHEDrine SULFATE 25 MG/5 ML(5MG/ML) SYRINGE As Ordered ONE
[2016-07-08] MEDS ORDERED: FLOM5CAP PO (06:49)
[2016-07-08] MEDS ORDERED: ONDANSETRON 4MG/2ML VIAL (J2405) IV ONE ×2 (07:30→10:30)
[2016-07-08] MEDS ORDERED: KETOROLAC 30 MG/ML VIAL (J1885) IV ONE (07:30)
--- NOTE | 2016-07-08 08:52 | REP ---
CT ABDOMEN AND PELVIS WITHOUT CONTRAST: 07/08/2016. Clinical history: Renal colic, left-sided pain. Comparison: CT 04/20/2016. Findings: The renal stone protocol was utilized with no IV or oral contrast. CT abdomen: Lung bases are clear. Heart is not enlarged. There is no pericardial thickening or effusion. The liver, spleen, gallbladder, pancreas and adrenal glands are normal. Stomach with some retained fluid. The small bowel loops and colon grossly unremarkable. There is no free air in the abdomen or pelvis on lung window review of all CT slices. Right kidney shows no hydronephrosis, stone or mass. This appears to be a horseshoe kidney anomaly of the inferior poles of both kidneys although the axis of the mid and upper poles of both kidneys remain normal along the psoas muscles. There is no stone or hydronephrosis on the right. The left kidney again shows a small stone medially in the interpolar region unchanged in position, apparently smaller. However, there is now left-sided hydronephrosis and hydroureter above the level of the acetabulum in the left upper pelvis. Bone windows were unremarkable in the abdomen and pelvis. CT pelvis: Bladder is only partially filled. There is no stone seen within it. There is a 7.4 mm stone in the left pelvic ureter causing the hydronephrosis and the ureter normal caliber below it without stone there or in the bladder. The distal ureter in the deep pelvis does not show stone or dilatation on either side. There are right and left tubal clamps in the right parametrium, the left toward the midline near the fundus of the uterus. Small bowel loops and colon in the pelvis unremarkable. No ventral or inguinal hernia nor pathologic sized inguinal adenopathy. Uterus midline and retroverted. Impression: 1. Left-sided hydronephrosis and hydroureter with a 7.4 mm stone in the upper pelvic ureter just above the level of the acetabulum. There is still a stone in the left kidney as seen on 04/20/2016, but it may be slightly smaller and the ureteral stone may have been adjacent to it or detached. No right ureteral dilatation or stone and no bladder or right kidney stone. No right hydronephrosis. No other finding. Signed by Marvin Mcrae MD 07/08/2016 03:26 P
[2016-07-08] MEDS: MORPHINE 4 MG/ML 1ML SYRINGE IV PRN ×2 (10:31→11:10)
[2016-07-08] MEDS ORDERED: HYDROmorphone HCL 1 MG/ML SYRINGE (J1170) IV PRN (12:30)
[2016-07-08 13:28] LABS: BASO % 0.4 % (0.0-1.0); EOS % 0.4 % (0.0-3.0); LARGE UNSTAINED CELL # 0.1 K/mm3 (0.0-0.4); LYMPH # 1.3 K/mm3 (1.5-4.5); LYMPH % 10.9 % (24.0-44.0); MEAN CORPUSCULAR HGB CONC 32.8 g/dl (32.0-36.5); MEAN CORPUSCULAR VOLUME 94.4 fl (80.0-96.0); MONO # 0.5 K/mm3 (0.0-0.8); MONO % 4.7 % (0.0-5.0); NEUTROPHILS # 8.7 K/mm3 (1.8-7.7); NEUTROPHILS % 82.7 % (36.0-66.0); PLATELET COUNT, AUTOMATED 199 k/mm3 (150-450); RED CELL DISTRIBUTION WIDTH 12.5 % (11.5-14.5); WHITE BLOOD COUNT 10.5 K/mm3 (4.0-10.0)
[2016-07-08 13:48] LABS: ANION GAP 6 MEQ/L (8-16); BLOOD UREA NITROGEN 9 MG/DL (7-18); CALCIUM LEVEL 8.8 MG/DL (8.5-10.1); CARBON DIOXIDE LEVEL 27 MEQ/L (21-32); CHLORIDE LEVEL 106 MEQ/L (98-107); CREATININE FOR GFR 0.65 MG/DL (0.55-1.02); GLOMERULAR FILTRATION RATE > 60.0 (>60); GLUCOSE, FASTING 91 MG/DL (70-105); POTASSIUM SERUM 4.1 MEQ/L (3.5-5.1); SODIUM LEVEL 139 MEQ/L (136-145)
[2016-07-08] MEDS ORDERED: NS 1,000 ML IV SCH (14:15)
[2016-07-08] MEDS ORDERED: TIZA2TA PO (15:00)
[2016-07-08] MEDS ORDERED: NORE0.353 PO (15:00)
[2016-07-08] MEDS ORDERED: CONRAY-60 60% 50ML VIAL (Q9961) As Ordered ONE (16:14)
[2016-07-08] MEDS ORDERED: LevoFLOXacin(LEVAQUIN)500 MG/100 ML BAG (J1956) As Ordered ONE (16:22)
[2016-07-08 16:33] LABS: CONTROL LINE HCG INT CTR LINE PRESENT
[2016-07-08] MEDS ORDERED: LIDOCAINE 2% INJ 100 MG/5 ML SDV (FOR ANES.) As Ordered ONE (17:10)
[2016-07-08] MEDS ORDERED: PROPOFOL 200 MG/20 ML VIAL As Ordered ONE (17:10)
[2016-07-08] MEDS ORDERED: ONDANSETRON 4MG/2ML VIAL (J2405) As Ordered ONE (17:10)
[2016-07-08] MEDS ORDERED: dexameTHASONE 4 MG/ML 1ML VIAL (J1100) As Ordered ONE (17:10)
[2016-07-08] MEDS ORDERED: fentaNYL 250 MCG/5 ML INJECTION (J3010) As Ordered ONE (17:10)
[2016-07-08] MEDS ORDERED: MIDAZOLAM INJ 2 MG/2 ML VIAL (J2250) As Ordered ONE (17:10)
[2016-07-08] MEDS ORDERED: ONDANSETRON 4MG/2ML VIAL (J2405) IV PRN ×2 (18:30→18:45)
[2016-07-08] MEDS ORDERED: LR 1,000 ML IV SCH (18:30)
[2016-07-08] MEDS ORDERED: fentaNYL 100 MCG/2 ML INJECTION (J3010) IV PRN (18:30)
[2016-07-08] MEDS ORDERED: PERCOCET 5MG/325MG TAB PO PRN (18:30)
[2016-07-08] MEDS ORDERED: METOCLOPRAMIDE INJ 10MG/2ML VIAL (J2765) IV PRN (18:30)
[2016-07-08] MEDS ORDERED: MORPHINE 4 MG/ML 1ML SYRINGE IV PRN (18:45)
[2016-07-08] MEDS ORDERED: ACETAMINOPHEN TAB 650MG DOSE (2X325MG) PO PRN (18:45)
[2016-07-08] MEDS: KETOROLAC 30 MG/ML VIAL (J1885) IV SCH (19:00)
[2016-07-08 19:29] VITALS: BP 111/65
[2016-07-08 20:00] VITALS: BP 111/69
[2016-07-08 20:01] LABS: MEAN CORPUSCULAR HEMOGLOBIN 31.2 pg (27.0-33.0); MEAN CORPUSCULAR HGB CONC 33.1 g/dl (32.0-36.5); MEAN CORPUSCULAR VOLUME 94.4 fl (80.0-96.0); RED CELL DISTRIBUTION WIDTH 12.7 % (11.5-14.5)
[2016-07-08 20:21] LABS: ANION GAP 8 MEQ/L (8-16); BLOOD UREA NITROGEN 8 MG/DL (7-18); CALCIUM LEVEL 8.7 MG/DL (8.5-10.1); CARBON DIOXIDE LEVEL 24 MEQ/L (21-32); CHLORIDE LEVEL 106 MEQ/L (98-107); CREATININE FOR GFR 0.59 MG/DL (0.55-1.02); GLOMERULAR FILTRATION RATE > 60.0 (>60); GLUCOSE, FASTING 103 MG/DL (70-105); POTASSIUM SERUM 4.1 MEQ/L (3.5-5.1); SODIUM LEVEL 138 MEQ/L (136-145)
[2016-07-08 21:00] VITALS: BP 104/66
[2016-07-08 22:00] VITALS: BP 95/53
[2016-07-08 23:00] VITALS: BP 95/52
[2016-07-09 01:00] VITALS: BP 83/53
[2016-07-09 01:30] VITALS: BP 88/60
[2016-07-09] MEDS ORDERED: LR 1,000 ML IV SCH (01:45)
[2016-07-09 04:00] VITALS: BP 90/50
[2016-07-09] MEDS: KETOROLAC 30 MG/ML VIAL (J1885) IV SCH (04:27)
[2016-07-09 07:27] LABS: MEAN CORPUSCULAR HEMOGLOBIN 32.1 pg (27.0-33.0); MEAN CORPUSCULAR HGB CONC 34.1 g/dl (32.0-36.5); MEAN CORPUSCULAR VOLUME 94.3 fl (80.0-96.0); RED CELL DISTRIBUTION WIDTH 12.7 % (11.5-14.5); WHITE BLOOD COUNT 7.8 K/mm3 (4.0-10.0)
[2016-07-09 07:43] LABS: ANION GAP 9 MEQ/L (8-16); BLOOD UREA NITROGEN 9 MG/DL (7-18); CALCIUM LEVEL 8.4 MG/DL (8.5-10.1); CARBON DIOXIDE LEVEL 23 MEQ/L (21-32); CHLORIDE LEVEL 108 MEQ/L (98-107); GLOMERULAR FILTRATION RATE > 60.0 (>60); GLUCOSE, FASTING 104 MG/DL (70-105); SODIUM LEVEL 140 MEQ/L (136-145)
[2016-07-09 08:00] VITALS: BP 96/57
[2016-07-09] MEDS ORDERED: BACT800T5 PO (08:16)
[2016-07-09] MEDS ORDERED: TRAM-533 PO (08:17)
--- NOTE | 2016-07-09 08:27 | REP ---
RETROGRADE PYELOGRAM: 07/08/2016. Comparison: CT abdomen and pelvis this date. Clinical history: Left renal colic with a renal stone in the pelvic ureter just above the acetabular level. Three images were provided from C-arm fluoroscopy utilized by Dr. Gonzalez for a left internal ureteral stent placement. A catheter on the first image is in the left ureter and with wires into the renal pelvis where they are coiled. 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 The third image shows the stent now coiled proximally in the renal pelvis on the left and distally in the bladder. Fluoroscopy time: 57 seconds. Signed by Marvin Mcrae MD 07/09/2016 02:51 P
[2016-07-09] MEDS ORDERED: PANTOPRAZOLE 40MG INJ (PROTONIX) (C9113) IV SCH (09:00)
--- NOTE | 2016-07-09 11:23 | RO ---
DATE OF PROCEDURE: 07/08/2016 PREOPERATIVE DIAGNOSIS: Left ureteral stone, left hydronephrosis and left kidney stone. POSTOPERATIVE DIAGNOSIS: Left ureteral stone, left hydronephrosis and left kidney stone. FINDINGS: Left distal ureteral stone about 8 mm in diameter, left kidney stone of about 6 mm in diameter lower pole. PROCEDURE: Cystoscopy, plus left retrograde pyelogram plus left ureteroscopy plus Holmium laser stone laser lithotripsy plus left basket extraction of stones plus left JJ stent placement #6 [place] Ray Cook. SURGEON: Dr. Shawn Gonzalez SPANISH INTERPRETER/TRANSLATOR: Dr. Sandro Bauer, PGY3, resident. ANESTHESIA: General. COMPLICATIONS: None. ESTIMATED BLOOD LOSS: N/A. HISTORY OF PRESENT ILLNESS: 36-year-old female patient that actually came to the ED due to severe flank pain, nausea, vomiting for the past 24 hours. She had a history of extracorporeal shock wave lithotripsy about 2-3 weeks ago. 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 For this reason, the patient since she cannot tolerate the pain after IV pain medication, we have consented her for cystoscopy plus left retrograde pyelogram plus left ureteroscopy plus basket extraction of stones, possibly laser stone lithotripsy, possible left JJ stent placement. PROCEDURE DESCRIPTION: With patient under general anesthesia in supine modified low lithotomy position, after prepping and draping the area of concern which included the entire genitalia and abdomen, we started by introducing a cystoscopy #21-Bolivian in diameter with a 30 lens under videoscopy guidance. The urethra and bladder neck were totally normal. The bladder had no tumors, no stones, no foreign objects. The right ureteral orifice was seen. The left ureteral orifice was seen. We then proceeded to catheterize with a #5-Bolivian Pollack catheter left ureteral orifice and passed a Solo guidewire up to the kidney. We then proceeded to actually push in the Pollack catheter and took out the Pollack catheter afterward and took the cystoscope out. We then passed a double lumen catheter up to the distal ureter and then did a retrograde pyelogram showing left hydronephrosis and two kidney stones, one kidney stone in the lower pole and one ureteral stone in the distal ureter. At the moment in time, we passed a second Solo guidewire up to the kidney and then removed the double lumen catheter. Following the first guidewire with a ureteroscope semi-rigid 20 short 7-Bolivian in diameter, we went into the ureter and up to the distal left ureteral stone. Then we removed the internal guidewire having a safety guidewire lateral to this one. With a Holmium laser 200 Micron probe at a power of 0.6 and a rate of 10, we pulverized the stone in the left distal ureter into multiple pieces. We then took out the Holmium laser and pushed in a 0 tip basket 1.9 [place]ian in diameter and grabbed the biggest pieces out and cleared the ureter from all stones. The stones were sent as left distal ureteral stone for biochemical analysis. We then proceeded to actually take semi-rigid ureteroscope out and loaded a ureteral access sheath with a guidewire up to the proximal ureter. We took out the obturator of the ureteral access sheath and introduced a flexible ureteroscope up to the kidney. We then did a nephroscopy with a flexible ureteroscope upper pole, mid pole and lower pole. We found in the lower pole posterior part of the kidney a stone about 6 mm in diameter. With a 0 tip basket, we grabbed it and pulled it out of the body of the patient. We then found a 2 mm stone also and pulled it out of the body of the patient through the ureteral access sheath. We then did a formal nephroscopy upper pole, mid pole and lower pole and isthmus and there was no stones left. There was only dust. At that moment in time, we did a retrograde ureteroscopy by removing the flexible ureteroscope and the ureteral access sheath at the same time. There were no stones left in the ureter. At that moment in time, we took the ureteroscope and ureteral access sheath out and then placed a cystoscope following the guidewire. Following the guidewire, we placed a #6-Bolivian Ray Cook stent through the cystoscope following the guidewire up to the kidney. Once the stent was in good position, we took the guidewire out. We could see the curl in the kidney and the curl in the bladder. We then emptied the bladder and took the cystoscope out. PLAN: The patient will stay overnight same day surgery and once she is tolerating regular diet, ambulating very well and pain is under control, she will be discharged home tomorrow morning. She will follow at [facility] in about 1 week to remove the JJ stent on the left side. She will go home with antibiotic and pain medication.
[2016-07-09] MEDS ORDERED: LevoFLOXacin IV 500 MG in APPROPRIATE DILUENT 1 EA IV SCH (18:00)
--- NOTE | 2016-07-09 20:45 | DSES ---
DATE OF ADMISSION: 07/08/2016 DATE OF DISCHARGE: 07/09/2016 ADMISSION DIAGNOSIS: Left hydronephrosis and left distal ureteral stone and left kidney stone. DATE OF PROCEDURE: 07/08/2016 ADMISSION SURGEON: Shawn Gonzalez MD DISCHARGE SURGEON: Shawn Gonzalez MD SURGERY PERFORMED: Cystoscopy plus left retrograde pyelogram plus left ureteroscopy plus laser stone lithotripsy with Holmium laser plus left basket extraction of stones plus left JJ stent placement. HISTORY OF PRESENT ILLNESS: This is a 36-year-old female patient that actually 2-3 weeks ago had extracorporal shock wave lithotripsy to a left kidney stone. The patient came to the emergency department (ED) 24 hours ago due to severe pain for 24 hours, nausea, and vomiting. The pain was not calmed down with IV narcotics. For this reason, urology consult was performed and we evaluated the patient. The patient was in severe pain and for this reason we decided to take her to the operating room (OR) for cystoscopy, left retrograde pyelogram, left ureteroscopy, left laser stone lithotripsy, left basket extraction of stones, and left JJ stent placement. The patient consented for the procedure and this procedure was performed on 07/08/2016. HOSPITALIZATION COURSE: The patient did very well and by postoperative day #1 was tolerating clear liquids and regular diet. She was ambulating very well. She was urinating and voiding by herself. Pain was under control with oral pain medication. For this reason, she requested to go home and we agreed upon this. She will go home with the following indications: Bactrim double strength one tablet by mouth twice a day, Tramadol 50 mg every 8 hours as needed for abdominal pain, she will use Tylenol on top of that if needed [id number]. She will take 2-3 liters of water a day. She will continue taking her home medications, including Flomax. She will followup with [facility] in about 1-2 weeks for removal of the JJ stent placement. The patient has agreed on the plan and we are discharging her today.
== END 2016-07-09 10:45 | disposition home or self-care (01) ==
LOC: EDSEX 06:40 → EDBD 06:40 → M ED 07:55 → M SDC 15:38 → M PED 19:15 → M SDC 07-09 10:45
PROVIDERS: ATTEND Urology
DX: N13.2 Hydronephrosis with renal and ureteral calculous obstruction (principal); M54.9 Dorsalgia, unspecified; F32.9 Major depressive disorder, single episode, unspecified; F17.210 Nicotine dependence, cigarettes, uncomplicated; Z88.8 Allergy status to other drugs, medicaments and biological substances; Z79.899 Other long term (current) drug therapy; Z98.51 Tubal ligation status
CPT/HCPCS: 36415; 52356; 74176; 74420; 80048; 81001; 82360; 84703; 85025; 85027; 87086; 88300; 99284; C1726; C1894; C2617; C9113; J1100; J1885; J1956; J2250; J2405; J3010; Q9961

== ENCOUNTER → 2016-10-22 | Outpatient (REF) | payer OTHER ==
[~2016-10-22] MED LIST changes: +AMOX500C PO; +BACT800T5 PO; +FLOM5CAP PO; +NORE0.353 PO; +TIZA2TA PO; +TRAM-533 PO; +TYLE325T5 PO
== END ==
LOC: M LAB REF 16:18
PROVIDERS: ATTEND Physician Assistant Medical
DX: R39.15 Urgency of urination (principal)

== ENCOUNTER 2016-12-13 17:12 | Emergency (ER) | payer OTHER ==
[~2016-12-13] VITALS: Ht 160 cm; Wt 45.5 kg
[~2016-12-13 17:12] MED LIST changes: -AMOX500C PO; -TYLE325T5 PO
[2016-12-13 17:13] VITALS: BP 121/74
[2016-12-13] MEDS ORDERED: TYLE325T5 PO (17:28)
[2016-12-13] MEDS ORDERED: AMOX500C PO (18:06)
[2016-12-13] MEDS ORDERED: AMOXICILLIN 500 MG CAP PO ONE (18:15)
[2016-12-13] MEDS ORDERED: NORCO, ANEXSIA 5/325MG TABLET (HYDROcodone/ACETAMINOPHEN) PO ONE (18:15)
[2016-12-13] MEDS ORDERED: NORCO 5/325MG TABLET (BULK FOR ED) PO ONE (18:15)
== END 2016-12-13 18:31 | disposition home or self-care (01) ==
LOC: M ED 17:12
DX: K04.7 Periapical abscess without sinus (principal); G50.1 Atypical facial pain; G40.909 Epilepsy, unspecified, not intractable, without status epilepticus; F17.200 Nicotine dependence, unspecified, uncomplicated; Z87.442 Personal history of urinary calculi; Z79.899 Other long term (current) drug therapy; Z88.8 Allergy status to other drugs, medicaments and biological substances

== ENCOUNTER 2017-05-04 12:51 | Emergency (ER) | payer OTHER ==
[2017-05-04] MEDS: ONDANSETRON 4 MG ORAL DISINTEGRATING TAB (S0181) PO (15:22)
[2017-05-04] MEDS: NORCO, ANEXSIA 5/325MG TABLET (HYDROcodone/ACETAMINOPHEN) PO (15:22)
[2017-05-04] MEDS: CLINDAMYCIN 150 MG CAP PO (15:22)
== END 2017-05-04 15:23 | disposition home or self-care (01) ==
LOC: M ED 12:51
DX: K04.7 Periapical abscess without sinus (principal); F17.200 Nicotine dependence, unspecified, uncomplicated; Z79.899 Other long term (current) drug therapy; Z88.8 Allergy status to other drugs, medicaments and biological substances
CPT/HCPCS: 99282

== ENCOUNTER → 2017-06-03 | Outpatient (REF) | payer OTHER ==
[2017-06-03 18:37] LABS: INFLUENZA A AMPLIFICATION NEGATIVE (NEGATIVE); INFLUENZA B AMPLIFICATION NEGATIVE (NEGATIVE)
== END ==
LOC: M LAB REF 17:37
DX: J11.1 Influenza due to unidentified influenza virus with other respiratory manifestations (principal)
CPT/HCPCS: 87502

== ENCOUNTER → 2017-09-14 | Outpatient (REF) | LOC: M SMT 12:06 | DX: Z00.00 Encounter for general adult medical examination without abnormal findings (principal) ==

== ENCOUNTER 2018-03-14 17:56 | Emergency (ER) | payer OTHER ==
[~2018-03-14] VITALS: Ht 160 cm; Wt 58.2 kg
[~2018-03-14 17:56] MED LIST changes: +AMOX500C PO; +CLEO300C2 PO; +FLOM0.4C39 PO; -FLOM5CAP PO; -GABA-282 PO; +GABA-843 PO; +NORCOTAB PO; +TYLE325T5 PO; +ZOFR4TAB14 PO
[2018-03-14] MEDS ORDERED: QUET1TAB7 PO (18:04)
[2018-03-14 18:46] LABS: BASO # 0.1 10^3/uL (0.0-0.2); BASO % 0.5 % (0.0-1.0); EOS # 0.5 10^3/uL (0.0-0.50); EOS % 3.9 % (0.0-3.0); HEMOGLOBIN 13.7 g/dl (12.0-15.5); LYMPH # 2.7 10^3/uL (1.5-4.5); LYMPH % 20.6 % (24.0-44.0); MEAN CORPUSCULAR HGB CONC 33.4 g/dl (32.0-36.5); MEAN CORPUSCULAR VOLUME 95.8 fl (80.0-96.0); MONO # 0.6 10^3/uL (0.0-0.8); MONO % 4.6 % (0.0-5.0); NEUTROPHILS # 9.2 10^3/uL (1.8-7.7); PLATELET COUNT, AUTOMATED 180 10^3/uL (150-450); RED BLOOD COUNT 4.28 10^6/uL (4.00-5.40); WHITE BLOOD COUNT 13.2 10^3/uL (4.0-10.0)
[2018-03-14 19:21] LABS: HCG, SERUM QUALITATIVE NEGATIVE (NEGATIVE)
[2018-03-14 19:22] LABS: ALBUMIN 3.6 GM/DL (3.2-5.2); ALT/SGPT 17 U/L (12-78); AMYLASE 94 U/L (25-115); BILIRUBIN,DIRECT 0.1 MG/DL (0.0-0.2); BILIRUBIN,TOTAL 0.5 MG/DL (0.2-1.0); BLOOD UREA NITROGEN 8 MG/DL (7-18); CALCIUM LEVEL 8.1 MG/DL (8.5-10.1); CARBON DIOXIDE LEVEL 23 MEQ/L (21-32); CHLORIDE LEVEL 109 MEQ/L (98-107); CREATININE FOR GFR 0.65 MG/DL (0.55-1.30); GLOMERULAR FILTRATION RATE > 60.0 (>60); GLUCOSE, FASTING 114 MG/DL (70-100); LIPASE 106 U/L (73-393); POTASSIUM SERUM 3.6 MEQ/L (3.5-5.1); SODIUM LEVEL 140 MEQ/L (136-145); TOTAL PROTEIN 6.9 GM/DL (6.4-8.2)
[2018-03-14] MEDS ORDERED: KETOROLAC 30 MG/ML VIAL (J1885) IV ONE (20:15)
[2018-03-14] MEDS ORDERED: NS 1,000 ML IV ONE (20:15)
[2018-03-14] MEDS ORDERED: ISOVUE-370 76% 100ML VIAL (Q9967) As Ordered ONE (20:29)
--- NOTE | 2018-03-14 22:04 | REPVR ---
EXAM: CT Abdomen and Pelvis With Contrast EXAM DATE/TIME: 03/14/2018 8:47 PM CLINICAL HISTORY: 37 years old, female; Pain; Abdominal pain; Generalized; Additional info: Periumbilic pain TECHNIQUE: Axial computed tomography images of the abdomen and pelvis with intravenous contrast. All CT scans at this facility use at least one of these dose optimization techniques: automated exposure control; mA and/or kV adjustment per patient size (includes targeted exams where dose is matched to clinical indication); or iterative reconstruction. Coronal and sagittal reformatted images were created and reviewed. CONTRAST: 100 ml of ISVOUE 370 administered intravenously. COMPARISON: CT ABD PELVIS W/O CONTRAST 07/08/2016 7:59 AM FINDINGS: Lower thorax: Unremarkable. ABDOMEN: Liver: Mild hepatic steatosis. 7 mm low density lesion in the left hepatic lobe, too small to characterize. Gallbladder and bile ducts: No radiodense gallstones. No biliary ductal dilatation. Pancreas: Unremarkable. Spleen: Unremarkable. Adrenals: 2.2 x 2.1 cm low density right adrenal nodule, likely a benign adenoma. 7 mm low-density left adrenal nodule, also likely a benign adenoma. Kidneys and ureters: Horseshoe kidney. No radiodense calculi. No hydronephrosis. Stomach and bowel: No bowel wall thickening. No obstruction. No pneumatosis. Appendix: Normal. PELVIS: Bladder: Unremarkable. Reproductive: 3.1 x 2.4 cm left adnexal cystic lesion. Evidence of prior tubal ligation. ABDOMEN and PELVIS: Intraperitoneal space: Trace nonspecific free pelvic fluid, likely physiologic. No organized fluid collection. No free air. Bones/joints: No acute osseous abnormality. Soft tissues: Tiny, fat-containing umbilical hernia. Vasculature: Unremarkable. No aneurysm. Lymph nodes: No pathologically enlarged lymph nodes. IMPRESSION: 1. 3.1 x 2.4 cm left adnexal cystic lesion. If clinically indicated, pelvic ultrasound may be obtained for further evaluation. 2. Additional findings, as above. COMMENT: Consistent with the [employer]'s Incidental Findings Committee Report (J Am Terrell Radiol 2010): Unless the patient's specific circumstances suggest otherwise, any liver lesion 0.5 cm or less, any cystic kidney lesion less than 1.0 cm, and/or any adrenal lesion 1.0 cm or less not otherwise characterized in this report as possessing suspicious or indeterminate imaging features is/are highly likely to be benign and do not require follow-up imaging or biopsy. Electronically signed by: Marcelino Gillespie On 03/14/2018 22:03:39 PM
--- NOTE | 2018-03-14 23:25 | REPVR ---
EXAM: US Pelvis Complete, Transabdominal and US Pelvis, Transvaginal EXAM DATE/TIME: 03/14/2018 11:10 PM CLINICAL HISTORY: 37 years old, female; Pain; Abdominal pain; Lower abdomen; Additional info: Llq pain/adenexal mass on CT TECHNIQUE: Real-time transabdominal and transvaginal pelvic ultrasound (complete) with image documentation. Transvaginal imaging was used for better evaluation of the endometrium and adnexa. COMPARISON: US PELVIC NON-OB COMPLETE 04/20/2016 1:[address] ABD/PEL W/IV CONTRAST ONLY 03/14/2018 8:29:00 PM FINDINGS: Uterus/cervix: 8.6 x 4.9 x 6.4 cm. Endometrial stripe is normal. Right adnexa: 3.1 x 1.9 x 1.8 cm. No solid mass. Normal ovarian blood flow. Left adnexa: 3.6 x 2.8 x 3.2 cm. 2.6 x 1.8 x 2.5 cm irregular, thickwalled complex cystic lesion, suggestive of an involuting corpus luteal cyst. No solid mass. Normal ovarian blood flow. Free fluid: None. Bladder: Normal. IMPRESSION: 2.6 x 1.8 x 2.5 cm irregular, thickwalled complex left ovarian cystic lesion, suggestive of an involuting corpus luteal cyst. Electronically signed by: Marcelino Gillespie On 03/14/2018 23:25:18 PM
[2018-03-14] MEDS ORDERED: NORCOTAB PO (23:34)
[2018-03-14 23:44] VITALS: BP 111/59
--- NOTE | 2018-03-15 08:32 | ED PDOC ---
Post-Departure Follow-Up angelina jackson faxed formal report of pelvic us for fu Mason Martin MD Mar 15, 2018 08:32
== END 2018-03-14 23:50 | disposition home or self-care (01) ==
LOC: M ED 17:56
DX: N83.202 Unspecified ovarian cyst, left side (principal); R56.9 Unspecified convulsions; F33.9 Major depressive disorder, recurrent, unspecified; F41.9 Anxiety disorder, unspecified; M41.9 Scoliosis, unspecified; Z87.442 Personal history of urinary calculi; Z79.899 Other long term (current) drug therapy; Z88.8 Allergy status to other drugs, medicaments and biological substances; F17.210 Nicotine dependence, cigarettes, uncomplicated
CPT/HCPCS: 74177; 76830; 76856; 80048; 80076; 81001; 82150; 83690; 84703; 85025; 93976; 96374; 99284; J1885; Q9967

== ENCOUNTER → 2018-05-05 | Outpatient (CLI) | payer OTHER ==
[~2018-05-05] MED LIST changes: +QUET1TAB7 PO
--- NOTE | 2018-05-06 02:44 | REP ---
Clinical: Followup complex ovarian cyst. Comparison: 03/14/2018 . Technique: Transabdominal pelvic ultrasound followed by transvaginal examination for better evaluation of the endometrium and adnexa. Findings: Bladder is unremarkable and measures 6.9 x 4.0 x 8.2 cm . Normal retroverted uterus measures 7.8 x 5.0 x 5.9 cm . The endometrial complex measures 5.9 mm thickness. No discrete uterine or endometrial abnormalities are appreciated. Bilateral ovaries are normal in appearance and vascularity without evidence for torsion. Right ovary measures 4.4 x 1.7 x 2.4 cm with 1.4 cm hemorrhagic cyst ; Left ovary measures 3.5 x 1.9 x 1.8 cm. Trace pelvic free fluid. No adnexal mass . Impression: 1. Physiologic hemorrhagic cyst in the right ovary. 2. Previously identified complex left ovarian cyst has resolved. Electronically Signed by Magdi Barron MD 05/06/2018 02:36 A
== END ==
LOC: M RAD 13:26
PROVIDERS: ATTEND Specialist
DX: N83.292 Other ovarian cyst, left side (principal)

== ENCOUNTER 2018-10-12 15:44 | Emergency (ER) | payer OTHER ==
[~2018-10-12] VITALS: Ht 160 cm; Wt 61.4 kg
[~2018-10-12 15:44] MED LIST changes: +HYDR-3715 PO; -NORCOTAB PO
[2018-10-12 15:45] VITALS: BP 119/69
[2018-10-12] MEDS ORDERED: HYDR-3363 (15:53)
[2018-10-12] MEDS ORDERED: KEFL500C17 PO (17:03)
== END 2018-10-12 17:16 | disposition home or self-care (01) ==
LOC: M ED 15:44
DX: N39.0 Urinary tract infection, site not specified (principal); Z86.19 Personal history of other infectious and parasitic diseases; R51 Headache; Z87.440 Personal history of urinary (tract) infections; Z87.442 Personal history of urinary calculi; M54.9 Dorsalgia, unspecified; F32.9 Major depressive disorder, single episode, unspecified; F41.9 Anxiety disorder, unspecified; Z87.59 Personal history of other complications of pregnancy, childbirth and the puerperium; M41.9 Scoliosis, unspecified; Z72.0 Tobacco use; Z79.899 Other long term (current) drug therapy; Z88.8 Allergy status to other drugs, medicaments and biological substances

== ENCOUNTER → 2018-11-16 | Outpatient (CLI) | payer OTHER ==
[~2018-11-16] MED LIST changes: +HYDR-3363; +KEFL500C17 PO
[2018-11-19 08:06] LABS: HPV HYBRID CAPTURE II Positive (Negative)
== END ==
LOC: M SMT 14:14
PROVIDERS: ATTEND Specialist
DX: Z13.79 Encounter for other screening for genetic and chromosomal anomalies (principal)

== ENCOUNTER 2019-03-07 13:36 | Emergency (ER) | payer OTHER ==
[~2019-03-07] VITALS: Ht 160 cm; Wt 59.6 kg
[2019-03-07] MEDS ORDERED: DULO1CAP4 (13:44)
[2019-03-07 15:09] LABS: BASO # 0.1 10^3/uL (0.0-0.2); BASO % 0.8 % (0.0-1.0); EOS # 0.3 10^3/uL (0.0-0.5); HEMATOCRIT 46.4 % (36.0-47.0); HEMOGLOBIN 14.8 g/dl (12.0-15.5); LYMPH # 2.5 10^3/uL (1.5-5.0); LYMPH % 27.2 % (24.0-44.0); MEAN CORPUSCULAR HEMOGLOBIN 31.4 pg (27.0-33.0); MEAN CORPUSCULAR HGB CONC 31.9 g/dl (32.0-36.5); MEAN CORPUSCULAR VOLUME 98.3 fl (80.0-96.0); MONO # 0.5 10^3/uL (0.0-0.8); MONO % 5.2 % (0.0-5.0); NEUTROPHILS # 5.9 10^3/uL (1.5-8.5); NEUTROPHILS % 63.6 % (36.0-66.0); PLATELET COUNT, AUTOMATED 206 10^3/uL (150-450); RED BLOOD COUNT 4.72 10^6/uL (4.00-5.40); WHITE BLOOD COUNT 9.3 10^3/uL (4.0-10.0)
[2019-03-07 15:35] LABS: BLOOD UREA NITROGEN 9 MG/DL (7-18); CALCIUM LEVEL 9.1 MG/DL (8.5-10.1); CARBON DIOXIDE LEVEL 31 MEQ/L (21-32); CHLORIDE LEVEL 108 MEQ/L (98-107); CREATININE FOR GFR 0.66 MG/DL (0.55-1.30); GLOMERULAR FILTRATION RATE > 60.0 (>60); GLUCOSE, FASTING 91 MG/DL (70-100); SODIUM LEVEL 141 MEQ/L (136-145)
[2019-03-07] MEDS ORDERED: metroNIDAZOLE (FLAGYL) 500 MG TAB PO ONE (16:45)
[2019-03-07] MEDS ORDERED: ONDANSETRON 4 MG ORAL DISINTEGRATING TAB (Q0162 PER 1MG) PO ONE (16:45)
[2019-03-07 17:08] VITALS: BP 123/71
[2019-03-07 17:11] LABS: CHLAMYDIA DNA AMPLIFICATION NEGATIVE (NEGATIVE); GC DNA AMPLIFICATION NEGATIVE (NEGATIVE)
== END 2019-03-07 17:09 | disposition home or self-care (01) ==
LOC: M ED 13:36
DX: A59.9 Trichomoniasis, unspecified (principal); R05 Cough; M41.9 Scoliosis, unspecified; F17.210 Nicotine dependence, cigarettes, uncomplicated; Z88.1 Allergy status to other antibiotic agents; Z79.899 Other long term (current) drug therapy
CPT/HCPCS: 36415; 80048; 81001; 84702; 85025; 87086; 87210; 87491; 87591; 99284; Q0162

== ENCOUNTER → 2020-09-04 | Outpatient (CLI) | payer OTHER ==
[~2020-09-04] MED LIST changes: -BUPR300T34 PO; +BUPR300T92 PO; +DULO1CAP4; +GABA-282 PO; -GABA-843 PO; -QUET1TAB7 PO; +QUET25TA3 PO
--- NOTE | 2020-09-04 10:56 | REP ---
INDICATION: SCOLIOSIS, UNSPECIFIED. COMPARISON: None. TECHNIQUE: Two AP views of the thoracolumbar spine. FINDINGS: Mild 9 degrees of dextroconvex scoliosis as measured from superior endplate of T10 to superior endplate of L3 is suggested. Vertebral bodies are normal in the frontal projection. No paravertebral soft tissue abnormalities noted. IMPRESSION: Mild scoliosis suggested. <Electronically signed by Magdi Barron > 09/04/20 [id number]
== END ==
LOC: M RAD 10:12
PROVIDERS: ATTEND Pediatrics
DX: M41.9 Scoliosis, unspecified (principal)

== ENCOUNTER 2020-10-22 00:33 | Emergency (ER) | payer OTHER ==
[~2020-10-22] VITALS: Ht 160 cm; Wt 63.0 kg
[2020-10-22] MEDS ORDERED: VITA200016 (00:42)
[2020-10-22 03:18] VITALS: BP 123/72
--- NOTE | 2020-10-22 05:51 | ECGEPIP ---
[facility] - ED Test Date: 2020-10-22 Pat Name: RAFAEL SIDDIQUI Department: Room: - Gender: Female [facility] Manager: IRVIN : 1980 Requested By: ORLY Nolasco Order Number: [id number] Reading MD: Kian Mcduffie Measurements Intervals [place] Rate: 78 P: 67 MI: 148 QRS: 42 QRSD: 94 T: 46 QT: 378 QTc: 430 Interpretive Statements Normal sinus rhythm with sinus arrhythmia POOR R WAVE PROGRESSION INCOMPLETE RIGHT BUNDLE BRANCH BLOCK NO PRIORS FOR COMPARISON Electronically Signed on 10-22-2020 5:51:25 EDT by Kian Mcduffie
== END 2020-10-22 05:13 | disposition left against medical advice (07) ==
LOC: M ED 00:33
DX: Z53.21 Procedure and treatment not carried out due to patient leaving prior to being seen by health care provider (principal)

== ENCOUNTER → 2020-11-26 | Outpatient (REF) | payer OTHER ==
[~2020-11-26] MED LIST changes: +QUET1TAB17 PO; -QUET25TA3 PO; +VITA200016
[2020-11-26 20:31] LABS: GC DNA AMPLIFICATION NEGATIVE (NEGATIVE)
== END ==
LOC: M SFHCWAGY 17:13
PROVIDERS: ATTEND Advanced Practice Midwife
DX: Z12.4 Encounter for screening for malignant neoplasm of cervix (principal); R30.0 Dysuria; R87.610 Atypical squamous cells of undetermined significance on cytologic smear of cervix (ASC-US)

== ENCOUNTER → 2021-04-28 | Outpatient (CLI) | payer OTHER | LOC: M RAD 17:02 | PROVIDERS: ATTEND Pediatrics | DX: Z87.442 Personal history of urinary calculi (principal); D35.01 Benign neoplasm of right adrenal gland; Q63.1 Lobulated, fused and horseshoe kidney ==

== ENCOUNTER → 2021-07-22 | Outpatient (REF) | payer OTHER ==
[2021-07-22 16:41] LABS: BASO # 0.1 10^3/uL (0.0-0.2); BASO % 0.6 % (0.0-1.0); EOS # 0.4 10^3/uL (0.0-0.5); EOS % 3.6 % (0.0-3.0); HEMATOCRIT 44.2 % (36.0-47.0); HEMOGLOBIN 14.5 g/dl (12.0-15.5); LYMPH # 3.5 10^3/uL (1.5-5.0); LYMPH % 29.8 % (24.0-44.0); MEAN CORPUSCULAR HGB CONC 32.8 g/dl (32.0-36.5); MEAN CORPUSCULAR VOLUME 97.6 fl (80.0-96.0); MONO # 0.6 10^3/uL (0.0-0.8); MONO % 5.4 % (2.0-8.0); NEUTROPHILS % 60.3 % (36.0-66.0); PLATELET COUNT, AUTOMATED 242 10^3/uL (150-450); RED BLOOD COUNT 4.53 10^6/uL (4.00-5.40); WHITE BLOOD COUNT 11.6 10^3/uL (4.0-10.0)
[2021-07-22 16:57] LABS: ALT/SGPT 20 U/L (12-78); BILIRUBIN,TOTAL 0.5 MG/DL (0.2-1.0); BLOOD UREA NITROGEN 8 MG/DL (7-18); C REACTIVE PROTEIN QUANTITATIV 0.83 MG/DL (0.00-0.30); CALCIUM LEVEL 9.6 MG/DL (8.5-10.1); CARBON DIOXIDE LEVEL 26 MEQ/L (21-32); CHLORIDE LEVEL 108 MEQ/L (98-107); COMPLEMENT C3 128 MG/DL (90-180); COMPLEMENT C4 14 MG/DL (10-40); GLOMERULAR FILTRATION RATE > 60.0 (>58); GLUCOSE, FASTING 83 MG/DL (70-100); POTASSIUM SERUM 3.9 MEQ/L (3.5-5.1); RHEUMATOID FACTOR QUANT < 10.0 IU/ML (<15.0); SODIUM LEVEL 137 MEQ/L (136-145); TOTAL PROTEIN 7.5 GM/DL (6.4-8.2)
[2021-07-22 17:01] LABS: AMORPHOUS SEDIMENT SMALL (NEGATIVE); APPEARANCE, URINE TURBID (CLEAR); BACTERIA, URINE AUTO NEGATIVE (NEGATIVE); BILIRUBIN, URINE AUTO NEGATIVE (NEGATIVE); BLOOD, URINE BLOOD NEGATIVE (NEGATIVE); COLOR, URINE RED (YELLOW); GLUCOSE, URINE (UA) AUTO NEGATIVE (NEGATIVE); KETONE, URINE AUTO TRACE mg/dL (NEGATIVE); LEUKOCYTE ESTERASE, URINE AUTO 1+ (NEGATIVE); MUCUS, URINE SMALL (NEGATIVE); NITRITE, URINE AUTO NEGATIVE (NEGATIVE); PROTEIN, URINE AUTO 1+ mg/dL (NEGATIVE); RBC, URINE AUTO 0 /HPF (0-3); SPECIFIC GRAVITY URINE AUTO 1.023 (1.002-1.035); SQUAMOUS EPITHELIAL CELL UR AU 5 /HPF (0-6); WBC, URINE AUTO 2 /HPF (0-3)
[2021-07-22 17:07] LABS: TOTAL PROTEIN,RANDOM URINE 24.6 MG/DL (0.0-12.0)
[2021-07-22 18:29] LABS: ERYTHROCYTE SEDIMENTATION RATE 8 mm/hr (0-20)
== END ==
LOC: M SFHCRHEU 13:23
PROVIDERS: ATTEND Internal Medicine Rheumatology
DX: R76.8 Other specified abnormal immunological findings in serum (principal); M35.3 Polymyalgia rheumatica

== ENCOUNTER → 2021-08-19 | Outpatient (CLI) | payer OTHER | LOC: M RAD 11:05 | PROVIDERS: ATTEND Internal Medicine Rheumatology | DX: M35.3 Polymyalgia rheumatica (principal); R76.8 Other specified abnormal immunological findings in serum ==

== ENCOUNTER → 2021-10-09 | Outpatient (CLI) | payer OTHER | LOC: M RAD 16:19 | PROVIDERS: ATTEND Pediatrics | DX: Q63.1 Lobulated, fused and horseshoe kidney (principal) ==

== ENCOUNTER → 2021-10-14 | Outpatient (CLI) | payer OTHER | LOC: M PLAIMG 08:28 | PROVIDERS: ATTEND Internal Medicine Rheumatology | DX: R76.8 Other specified abnormal immunological findings in serum (principal); M35.3 Polymyalgia rheumatica; Z72.0 Tobacco use; R21 Rash and other nonspecific skin eruption; R76.0 Raised antibody titer ==

== ENCOUNTER 2022-01-02 15:52 | Emergency (ER) | payer OTHER ==
[~2022-01-02] VITALS: Ht 160 cm; Wt 68.6 kg
[2022-01-02] MEDS ORDERED: HYDR-3363 (16:29)
[2022-01-02] MEDS ORDERED: NAPR220C14 PO (16:29)
[2022-01-02 17:16] LABS: BASO # 0.1 10^3/uL (0.0-0.2); BASO % 0.6 % (0.0-1.0); EOS # 1.1 10^3/uL (0.0-0.5); EOS % 7.4 % (0.0-3.0); HEMATOCRIT 41.9 % (36.0-47.0); HEMOGLOBIN 13.9 g/dl (12.0-15.5); LYMPH % 26.1 % (24.0-44.0); MEAN CORPUSCULAR HEMOGLOBIN 31.4 pg (27.0-33.0); MEAN CORPUSCULAR HGB CONC 33.2 g/dl (32.0-36.5); MEAN CORPUSCULAR VOLUME 94.8 fl (80.0-96.0); MONO # 0.9 10^3/uL (0.0-0.8); MONO % 6.2 % (2.0-8.0); NEUTROPHILS % 59.4 % (36.0-66.0); PLATELET COUNT, AUTOMATED 250 10^3/uL (150-450); RED BLOOD COUNT 4.42 10^6/uL (4.00-5.40); WHITE BLOOD COUNT 15.2 10^3/uL (4.0-10.0)
[2022-01-02 17:49] LABS: ALBUMIN 3.6 GM/DL (3.2-5.2); ALT/SGPT 25 U/L (12-78); BILIRUBIN,DIRECT 0.1 MG/DL (0.0-0.2); BILIRUBIN,TOTAL 0.3 MG/DL (0.2-1.0); BLOOD UREA NITROGEN 10 MG/DL (7-18); CALCIUM LEVEL 8.8 MG/DL (8.5-10.1); CARBON DIOXIDE LEVEL 23 MEQ/L (21-32); CHLORIDE LEVEL 106 MEQ/L (98-107); CREATININE FOR GFR 0.73 MG/DL (0.55-1.30); GLOMERULAR FILTRATION RATE > 60.0 (>58); GLUCOSE, FASTING 96 MG/DL (70-100); LIPASE 124 U/L (73-393); POTASSIUM SERUM 3.8 MEQ/L (3.5-5.1); SODIUM LEVEL 137 MEQ/L (136-145); TOTAL PROTEIN 7.1 GM/DL (6.4-8.2)
[2022-01-02 18:03] LABS: HCG, SERUM QUALITATIVE NEGATIVE (NEGATIVE)
[2022-01-02] MEDS ORDERED: KETOROLAC 60MG 2ML VIAL IM ONE (19:00)
[2022-01-02 20:02] VITALS: BP 129/81
[2022-01-02] MEDS ORDERED: MIRA3350 PO (20:27)
[2022-01-02] MEDS ORDERED: COLA100C5 PO (20:27)
== END 2022-01-02 20:42 | disposition home or self-care (01) ==
LOC: M ED 15:52
DX: M54.50 Low back pain, unspecified (principal); K59.00 Constipation, unspecified; F32.A Depression, unspecified; F41.9 Anxiety disorder, unspecified; F17.200 Nicotine dependence, unspecified, uncomplicated; M41.9 Scoliosis, unspecified; F10.10 Alcohol abuse, uncomplicated; Z87.442 Personal history of urinary calculi; Z88.9 Allergy status to unspecified drugs, medicaments and biological substances; Z79.899 Other long term (current) drug therapy
CPT/HCPCS: 74176; 80048; 80076; 81000; 81015; 83690; 84703; 85025; 87086; 96372; 99283; J1885

== ENCOUNTER → 2022-01-07 | Outpatient (CLI) | payer OTHER ==
[~2022-01-07] MED LIST changes: +COLA100C5 PO; +MIRA3350 PO; +NAPR220C14 PO
== END ==
LOC: M PLALAB 11:52
PROVIDERS: ATTEND Internal Medicine Hematology
DX: R76.0 Raised antibody titer (principal)

== ENCOUNTER 2022-02-10 15:13 | Emergency (ER) | payer OTHER ==
[~2022-02-10] VITALS: Ht 160 cm; Wt 67.2 kg
[2022-02-10] MEDS ORDERED: METOCLOPRAMIDE INJ 10MG/2ML VIAL (J2765 PER 1) IV ONE (19:10)
[2022-02-10] MEDS ORDERED: NS 1,000 ML IV ONE (19:10)
[2022-02-10] MEDS ORDERED: KETOROLAC 30 MG/ML 1ML VIAL IV ONE (19:10)
[2022-02-10 19:31] LABS: BASO # 0.1 10^3/uL (0.0-0.2); BASO % 0.6 % (0.0-1.0); EOS # 0.3 10^3/uL (0.0-0.5); EOS % 2.1 % (0.0-3.0); HEMATOCRIT 44.2 % (36.0-47.0); HEMOGLOBIN 14.6 g/dl (12.0-15.5); LYMPH # 4.2 10^3/uL (1.5-5.0); LYMPH % 28.1 % (24.0-44.0); MEAN CORPUSCULAR HEMOGLOBIN 31.1 pg (27.0-33.0); MONO # 0.8 10^3/uL (0.0-0.8); MONO % 5.7 % (2.0-8.0); NEUTROPHILS # 9.4 10^3/uL (1.5-8.5); NEUTROPHILS % 63.2 % (36.0-66.0); PLATELET COUNT, AUTOMATED 213 10^3/uL (150-450); WHITE BLOOD COUNT 14.9 10^3/uL (4.0-10.0)
[2022-02-10 20:02] LABS: ERYTHROCYTE SEDIMENTATION RATE 7 mm/hr (0-20)
[2022-02-10 20:09] LABS: FREE THYROXINE INDEX 2.8 % (1.3-4.8); MAGNESIUM LEVEL 1.9 MG/DL (1.8-2.4); T UPTAKE 32.5 % (22.5-37.0); THYROID STIMULATING HORMONE 1.461 uIU/ML (0.55-4.78); THYROXINE (T4) 8.6 UG/DL (4.5-10.9)
[2022-02-10 21:00] VITALS: BP 122/73
== END 2022-02-10 21:21 | disposition home or self-care (01) ==
LOC: M ED 15:13
DX: R51.9 Headache, unspecified (principal); R20.2 Paresthesia of skin; G40.909 Epilepsy, unspecified, not intractable, without status epilepticus; M54.9 Dorsalgia, unspecified; Z87.442 Personal history of urinary calculi; Z79.899 Other long term (current) drug therapy; Z88.8 Allergy status to other drugs, medicaments and biological substances
CPT/HCPCS: 70450; 80047; 83735; 84436; 84443; 84479; 85025; 85652; 87428; 93041; 94760; 96361; 96374; 96375; 99285; J1885; J2765

== ENCOUNTER → 2022-04-08 | Outpatient (REF) | payer OTHER ==
[2022-04-09 11:30] LABS: APPEARANCE, URINE MANUAL HAZY (CLEAR); COLOR, URINE MANUAL YELLOW (YELLOW); PH,URINE MAN 6.5 UNITS (5.0 - 7.0); SPECIFIC GRAVITY,URINE MANUAL 1.015 (1.002-1.035)
[2022-04-09 11:31] LABS: BILIRUBIN, URINE MANUAL NEGATIVE (NEGATIVE); BLOOD URINE MANUAL TRACE (NEGATIVE); GLUCOSE, URINE (UA) MANUAL NEGATIVE (NEGATIVE); KETONE, URINE MANUAL NEGATIVE (NEGATIVE); LEUKOCYTE ESTERASE, URINE MAN POSITIVE (NEGATIVE); NITRITE, URINE MANUAL NEGATIVE (NEGATIVE); PROTEIN, URINE MANUAL TRACE mg/dL (NEGATIVE); UROBILINOGEN, URINE MANUAL NORMAL (NORMAL)
[2022-04-09 11:42] LABS: BACTERIA, URINE SMALL AMOUNT; SQUAMOUS EPITHELIAL CELL URINE MOD AMOUNT /hpf (SMALL AMT); WBC, URINE 20-30 /hpf (0-3)
[2022-04-09 11:43] LABS: HYALINE CAST, URINE NONE SEEN /lpf (0-1); MUCUS, URINE SMALL AMOUNT (NEGATIVE)
== END ==
LOC: M LAB REF 10:30
PROVIDERS: ATTEND Pediatrics
DX: Q63.1 Lobulated, fused and horseshoe kidney (principal)

== ENCOUNTER → 2022-05-05 | Outpatient (REF) | payer OTHER | LOC: M SFHCDERM 14:12 | PROVIDERS: ATTEND Nurse Practitioner Family | DX: R21 Rash and other nonspecific skin eruption (principal) ==

== ENCOUNTER → 2022-05-22 | Outpatient (CLI) | payer OTHER ==
[2022-05-22 14:23] LABS: BASO # 0.1 10^3/uL (0.0-0.2); BASO % 0.9 % (0.0-1.0); EOS # 0.4 10^3/uL (0.0-0.5); HEMATOCRIT 44.8 % (36.0-47.0); HEMOGLOBIN 14.9 g/dl (12.0-15.5); LYMPH # 2.3 10^3/uL (1.5-5.0); LYMPH % 25.1 % (24.0-44.0); MEAN CORPUSCULAR HEMOGLOBIN 31.8 pg (27.0-33.0); MEAN CORPUSCULAR HGB CONC 33.3 g/dl (32.0-36.5); MEAN CORPUSCULAR VOLUME 95.7 fl (80.0-96.0); MONO # 0.8 10^3/uL (0.0-0.8); MONO % 8.3 % (2.0-8.0); NEUTROPHILS # 5.6 10^3/uL (1.5-8.5); NEUTROPHILS % 61.3 % (36.0-66.0); PLATELET COUNT, AUTOMATED 229 10^3/uL (150-450); RED BLOOD COUNT 4.68 10^6/uL (4.00-5.40); WHITE BLOOD COUNT 9.1 10^3/uL (4.0-10.0)
[2022-05-22 14:52] LABS: URIC ACID 3.7 MG/DL (3.1-7.8)
[2022-05-22 14:54] LABS: ALBUMIN 3.7 G/DL (3.2-5.2); ALKALINE PHOSPHATASE 97 U/L (46-116); ALT/SGPT 22 U/L (7.0-40); AST/SGOT 21 U/L (<34); BILIRUBIN,TOTAL 0.4 MG/DL (0.3-1.2); BLOOD UREA NITROGEN 9 MG/DL (9-23); CALCIUM LEVEL 8.9 MG/DL (8.5-10.1); CARBON DIOXIDE LEVEL 26 MMOL/L (20-31); CHLORIDE LEVEL 107 MMOL/L (98-107); CREATININE FOR GFR 0.55 MG/DL (0.55-1.30); GLOMERULAR FILTRATION RATE > 60.0 (>58); GLUCOSE, FASTING 91 MG/DL (60-100); POTASSIUM SERUM 4.5 MMOL/L (3.5-5.1); SODIUM LEVEL 139 MMOL/L (136-145)
[2022-05-22 14:55] LABS: RHEUMATOID FACTOR QUANT < 3.5 IU/ML (<14)
[2022-05-22 14:56] LABS: ERYTHROCYTE SEDIMENTATION RATE 30 mm/hr (0-20)
[2022-05-22 15:06] LABS: HEPATITIS B SURFACE ANTIGEN NEGATIVE (NEGATIVE)
[2022-05-22 15:20] LABS: HIV 1&2 SCREEN CENTAUR NEGATIVE (NEGATIVE)
[2022-05-22 15:25] LABS: HEPATITIS B CORE ANTIBODY IGM NEGATIVE (NEGATIVE)
== END ==
LOC: M LAB 12:39
PROVIDERS: ATTEND Nurse Practitioner Family
DX: L93.2 Other local lupus erythematosus (principal)

== ENCOUNTER → 2022-07-20 | Outpatient (CLI) | payer OTHER, MEDICAID | LOC: M LAB 14:12 | PROVIDERS: ATTEND Nurse Practitioner Family | DX: L93.2 Other local lupus erythematosus (principal) ==

== ENCOUNTER 2022-08-03 17:40 | Inpatient (IN) | payer MEDICAID, OTHER ==
[~2022-08-03] VITALS: Ht 160 cm; Wt 62.7 kg
[~2022-08-03 17:40] MED LIST changes: +HYDR-3363 PO; -VITA200016; +VITA200016 PO
[2022-08-03] MEDS ORDERED: HYDR200T3 PO (18:07)
[2022-08-03] MEDS ORDERED: FLUO1SO TOP (18:07)
[2022-08-03] MEDS ORDERED: NS 1,000 ML IV ONE (18:45)
[2022-08-03] MEDS ORDERED: ADVITAB PO (19:20)
[2022-08-03] MEDS ORDERED: POLY17PO18 PO (19:20)
[2022-08-03] MEDS ORDERED: HOME MED LIST COMPLETE! XX SCH (19:25)
[2022-08-03 19:38] LABS: AMPHETAMINES LEVEL URINE NEGATIVE (NEGATIVE); BARBITURATES URINE NEGATIVE (NEGATIVE); BENZODIAZEPINES URINE NEGATIVE (NEGATIVE); CANNABINOIDS URINE NEGATIVE (NEGATIVE); COCAINE METABOLITE URINE NEGATIVE (NEGATIVE); METHADONE URINE NEGATIVE (NEGATIVE); OPIATES URINE NEGATIVE (NEGATIVE); PHENCYCLIDINE URINE NEGATIVE (NEGATIVE)
[2022-08-03 19:59] LABS: BASO # 0.1 10^3/uL (0.0-0.2); BASO % 0.7 % (0.0-1.0); EOS # 0.1 10^3/uL (0.0-0.5); EOS % 0.6 % (0.0-3.0); HEMATOCRIT 45.7 % (36.0-47.0); HEMOGLOBIN 15.2 g/dl (12.0-15.5); LYMPH # 2.3 10^3/uL (1.5-5.0); LYMPH % 18.6 % (24.0-44.0); MEAN CORPUSCULAR HEMOGLOBIN 31.4 pg (27.0-33.0); MEAN CORPUSCULAR HGB CONC 33.3 g/dl (32.0-36.5); MEAN CORPUSCULAR VOLUME 94.4 fl (80.0-96.0); MONO # 0.8 10^3/uL (0.0-0.8); MONO % 6.6 % (2.0-8.0); NEUTROPHILS % 73.1 % (36.0-66.0); PLATELET COUNT, AUTOMATED 266 10^3/uL (150-450); RED BLOOD COUNT 4.84 10^6/uL (4.00-5.40); WHITE BLOOD COUNT 12.4 10^3/uL (4.0-10.0)
[2022-08-03 20:19] LABS: ETHYL ALCOHOL (ETHANOL) < 0.003 % (0.000-0.010); LIPASE 31 U/L (12-53)
[2022-08-03 20:20] LABS: CK-MB VALUE MASS < 1.0 NG/ML (<3.6)
[2022-08-03 20:21] LABS: ACETAMINOPHEN LEVEL < 2.0 UG/ML (10.0-20.0); AMYLASE 82 U/L (30-118); CPK CREATINE PHOSPHOKINASE 49 U/L (34-145); MB/CK RELATIVE INDEX 2.04 (< OR =4); SALICYLATE LEVEL < 3.0 MG/DL (<30)
[2022-08-03 20:24] LABS: RSV AMPLIFICATION NEGATIVE (NEGATIVE)
[2022-08-03 20:25] LABS: ALBUMIN 3.9 G/DL (3.2-5.2); ALKALINE PHOSPHATASE 137 U/L (46-116); ALT/SGPT 17 U/L (7.0-40); AST/SGOT 16 U/L (<34); BILIRUBIN,DIRECT 0.1 MG/DL (<0.4); BILIRUBIN,TOTAL 0.3 MG/DL (0.3-1.2); BLOOD UREA NITROGEN < 5 MG/DL (9-23); CALCIUM LEVEL 9.2 MG/DL (8.5-10.1); CARBON DIOXIDE LEVEL 26 MMOL/L (20-31); CHLORIDE LEVEL 105 MMOL/L (98-107); CREATININE FOR GFR 0.54 MG/DL (0.55-1.30); GLOMERULAR FILTRATION RATE > 60.0 (>58); GLUCOSE, FASTING 108 MG/DL (60-100); POTASSIUM SERUM 4.3 MMOL/L (3.5-5.1); SODIUM LEVEL 138 MMOL/L (136-145); TOTAL PROTEIN 7.3 G/DL (5.7-8.2)
[2022-08-03] MEDS ORDERED: cefTRIAXone SOD 1 GM in D5W MINI-BAG PLUS 50 ML IV ONE (22:10)
[2022-08-04] MEDS ORDERED: FOSFOMYCIN TROMETHAMINE 3 GM POWDER PACKET (MONUROL) PO ONE (03:15)
[2022-08-04] MEDS ORDERED: ACETAMINOPHEN TAB 650MG DOSE (2X325MG) PO PRN (03:15)
[2022-08-04 05:25] VITALS: BP 104/68
[2022-08-04] MEDS ORDERED: NICOTINE 21MG/24HR 1 EA TRANSDERMAL TD SCH (09:00)
[2022-08-04] MEDS ORDERED: PRED10TA2 PO (10:19)
[2022-08-04] MEDS ORDERED: CEFD300C41 PO (10:20)
[2022-08-04] MEDS ORDERED: cefTRIAXone SOD 1 GM in D5W MINI-BAG PLUS 50 ML IV SCH (22:00)
== END 2022-08-04 11:17 | disposition home or self-care (01) | DRG 760 ==
LOC: M ED 17:40 → M ED INP 23:57 → M MS4PR 08-04 05:25
PROVIDERS: ADMIT Internal Medicine; ATTEND Student in an Organized Health Care Education/Training Program
DX: F22 Delusional disorders (principal); M32.10 Systemic lupus erythematosus, organ or system involvement unspecified; T37.2X5A Adverse effect of antimalarials and drugs acting on other blood protozoa, initial encounter; F31.9 Bipolar disorder, unspecified; N39.0 Urinary tract infection, site not specified; R42 Dizziness and giddiness; R11.0 Nausea; Z79.899 Other long term (current) drug therapy; Z88.8 Allergy status to other drugs, medicaments and biological substances; F17.210 Nicotine dependence, cigarettes, uncomplicated; R51.9 Headache, unspecified

== ENCOUNTER 2022-08-08 10:46 | Inpatient (IN) | payer MEDICAID, OTHER ==
[~2022-08-08] VITALS: Ht 160 cm; Wt 65.0 kg
[~2022-08-08 10:46] MED LIST changes: +ADVITAB PO; +CEFD300C41 PO; +FLUO1SO TOP; +HYDR200T3 PO; +POLY17PO18 PO; +PRED10TA2 PO
[2022-08-08] MEDS ORDERED: HYDR200T3 PO (11:27)
[2022-08-08 11:29] LABS: HEMATOCRIT 43.6 % (36.0-47.0); HEMOGLOBIN 14.4 g/dl (12.0-15.5); MEAN CORPUSCULAR HEMOGLOBIN 31.2 pg (27.0-33.0); MEAN CORPUSCULAR VOLUME 94.6 fl (80.0-96.0); PLATELET COUNT, AUTOMATED 260 10^3/uL (150-450); RED BLOOD COUNT 4.61 10^6/uL (4.00-5.40); WHITE BLOOD COUNT 12.8 10^3/uL (4.0-10.0)
[2022-08-08 11:45] LABS: AMPHETAMINES LEVEL URINE NEGATIVE (NEGATIVE); BENZODIAZEPINES URINE NEGATIVE (NEGATIVE)
[2022-08-08 11:46] LABS: BARBITURATES URINE NEGATIVE (NEGATIVE); CANNABINOIDS URINE NEGATIVE (NEGATIVE); COCAINE METABOLITE URINE NEGATIVE (NEGATIVE); ETHYL ALCOHOL (ETHANOL) < 0.003 % (0.000-0.010); METHADONE URINE NEGATIVE (NEGATIVE); OPIATES URINE NEGATIVE (NEGATIVE); PHENCYCLIDINE URINE NEGATIVE (NEGATIVE)
[2022-08-08 11:48] LABS: SALICYLATE LEVEL < 3.0 MG/DL (<30)
[2022-08-08 11:49] LABS: ACETAMINOPHEN LEVEL < 2.0 UG/ML (10.0-20.0); ALBUMIN 3.6 G/DL (3.2-5.2); ALKALINE PHOSPHATASE 112 U/L (46-116); ALT/SGPT 22 U/L (7.0-40); AST/SGOT < 8 U/L (<34); BILIRUBIN,DIRECT 0.1 MG/DL (<0.4); BILIRUBIN,TOTAL 0.3 MG/DL (0.3-1.2); BLOOD UREA NITROGEN 7 MG/DL (9-23); CARBON DIOXIDE LEVEL 25 MMOL/L (20-31); CHLORIDE LEVEL 105 MMOL/L (98-107); CREATININE FOR GFR 0.52 MG/DL (0.55-1.30); GLOMERULAR FILTRATION RATE > 60.0 (>58); GLUCOSE, FASTING 95 MG/DL (60-100); POTASSIUM SERUM 3.8 MMOL/L (3.5-5.1); SODIUM LEVEL 138 MMOL/L (136-145); TOTAL PROTEIN 6.9 G/DL (5.7-8.2)
[2022-08-08 11:54] LABS: HCG, SERUM QUALITATIVE NEGATIVE (NEGATIVE)
[2022-08-08] MEDS ORDERED: MOM 30ML SUSPENSION UDC PO PRN (19:25)
[2022-08-08] MEDS ORDERED: traZODone 50 MG TAB PO PRN (19:25)
[2022-08-08] MEDS ORDERED: OLANZapine ORAL DISINTEGRATING TAB 5MG PO PRN (19:25)
[2022-08-08] MEDS ORDERED: CEFD300C41 PO (19:34)
[2022-08-08] MEDS ORDERED: PRED10TA2 PO (19:38)
[2022-08-08] MEDS ORDERED: HOME MED LIST COMPLETE! XX SCH (19:40)
[2022-08-08 20:08] VITALS: BP 123/80
[2022-08-09 06:34] VITALS: BP 115/67
[2022-08-09] MEDS: NICOTINE 14 MG/24 HR TRANSDERMAL TD SCH (13:07)
[2022-08-09] MEDS: VITAMIN D 1,000 INTERNATIONAL UNITS TABLET PO SCH (13:07)
[2022-08-09 16:47] VITALS: BP 103/56
[2022-08-10 06:39] VITALS: BP 125/70
[2022-08-10] MEDS: VITAMIN D 1,000 INTERNATIONAL UNITS TABLET PO SCH (09:31)
[2022-08-10] MEDS: FLUoxetine 10 MG CAP PO SCH (09:31)
[2022-08-10] MEDS: NICOTINE 14 MG/24 HR TRANSDERMAL TD SCH (09:32)
[2022-08-10 18:00] VITALS: BP 130/79
[2022-08-11 06:44] VITALS: BP 116/68
[2022-08-11 09:02] LABS: CHOLESTEROL RISK RATIO 4.44 (<5); HDL CHOLESTEROL 32.6 MG/DL (>40); LDL CHOLESTEROL 90.2 MG/DL (<100); NON-HDL-C 112.4 MG/DL
[2022-08-11] MEDS: VITAMIN D 1,000 INTERNATIONAL UNITS TABLET PO SCH (09:11)
[2022-08-11] MEDS: FLUoxetine 10 MG CAP PO SCH (09:11)
[2022-08-11] MEDS: NICOTINE 14 MG/24 HR TRANSDERMAL TD SCH (09:12)
[2022-08-11 16:22] VITALS: BP 125/80
[2022-08-12 06:21] VITALS: BP 127/81
[2022-08-12] MEDS: FLUoxetine 10 MG CAP PO SCH (09:28)
[2022-08-12] MEDS: VITAMIN D 1,000 INTERNATIONAL UNITS TABLET PO SCH (09:28)
[2022-08-12] MEDS: NICOTINE 14 MG/24 HR TRANSDERMAL TD SCH (09:31)
[2022-08-12 19:13] VITALS: BP 141/90
[2022-08-13 06:51] VITALS: BP 118/74
[2022-08-13] MEDS: NICOTINE 14 MG/24 HR TRANSDERMAL TD SCH (10:09)
[2022-08-13] MEDS: FLUoxetine 10 MG CAP PO SCH (10:09)
[2022-08-13] MEDS: VITAMIN D 1,000 INTERNATIONAL UNITS TABLET PO SCH (10:09)
[2022-08-13] MEDS: MAALOX 30 ML SUSP *UDC PO PRN (12:00)
[2022-08-13] MEDS: OMEGA-3 1000MG CAPSULE PO SCH ×2 (12:00→21:21)
[2022-08-13] MEDS: ACETAMINOPHEN TAB 650MG DOSE (2X325MG) PO PRN (16:39)
[2022-08-13 17:35] VITALS: BP 126/77
[2022-08-14 06:44] VITALS: BP 118/77
[2022-08-14] MEDS: FLUoxetine 10 MG CAP PO SCH (09:19)
[2022-08-14] MEDS: VITAMIN D 1,000 INTERNATIONAL UNITS TABLET PO SCH (09:19)
[2022-08-14] MEDS: OMEGA-3 1000MG CAPSULE PO SCH ×2 (09:19→21:36)
[2022-08-14] MEDS: NICOTINE 14 MG/24 HR TRANSDERMAL TD SCH (09:21)
[2022-08-14 18:08] VITALS: BP 120/68
[2022-08-14] MEDS: ACETAMINOPHEN TAB 650MG DOSE (2X325MG) PO PRN (21:38)
[2022-08-15 06:12] VITALS: BP 126/74
[2022-08-15] MEDS: OMEGA-3 1000MG CAPSULE PO SCH ×2 (09:25→20:57)
[2022-08-15] MEDS: VITAMIN D 1,000 INTERNATIONAL UNITS TABLET PO SCH (09:25)
[2022-08-15] MEDS: FLUoxetine 10 MG CAP PO SCH (09:25)
[2022-08-15] MEDS: NICOTINE 14 MG/24 HR TRANSDERMAL TD SCH (09:26)
[2022-08-15 18:00] VITALS: BP 104/65
[2022-08-16 06:03] VITALS: BP 123/55
[2022-08-16] MEDS: FLUoxetine 10 MG CAP PO SCH (09:12)
[2022-08-16] MEDS: VITAMIN D 1,000 INTERNATIONAL UNITS TABLET PO SCH (09:12)
[2022-08-16] MEDS: NICOTINE 14 MG/24 HR TRANSDERMAL TD SCH (09:13)
[2022-08-16] MEDS: OMEGA-3 1000MG CAPSULE PO SCH ×2 (09:13→20:47)
[2022-08-16 18:40] VITALS: BP 110/70
[2022-08-17 07:11] VITALS: BP 126/71
[2022-08-17] MEDS: OMEGA-3 1000MG CAPSULE PO SCH ×2 (09:44→22:26)
[2022-08-17] MEDS: VITAMIN D 1,000 INTERNATIONAL UNITS TABLET PO SCH (09:44)
[2022-08-17] MEDS: NICOTINE 14 MG/24 HR TRANSDERMAL TD SCH (09:44)
[2022-08-17] MEDS: FLUoxetine 10 MG CAP PO SCH (09:44)
[2022-08-17 16:30] VITALS: BP 107/60
[2022-08-18 07:09] VITALS: BP 113/65
[2022-08-18] MEDS: FLUoxetine 10 MG CAP PO SCH (08:53)
[2022-08-18] MEDS: VITAMIN D 1,000 INTERNATIONAL UNITS TABLET PO SCH (08:54)
[2022-08-18] MEDS: OMEGA-3 1000MG CAPSULE PO SCH ×2 (08:54→21:49)
[2022-08-18] MEDS: NICOTINE 14 MG/24 HR TRANSDERMAL TD SCH (09:13)
[2022-08-18 16:43] VITALS: BP 113/72
[2022-08-18] MEDS: ARIPiprazole 15 MG TAB (AbiLIFY) PO SCH (21:49)
[2022-08-19 06:24] VITALS: BP 128/69
[2022-08-19] MEDS: NICOTINE 14 MG/24 HR TRANSDERMAL TD SCH (09:03)
[2022-08-19] MEDS: VITAMIN D 1,000 INTERNATIONAL UNITS TABLET PO SCH (09:03)
[2022-08-19] MEDS: FLUoxetine 20MG CAP PO SCH (09:03)
[2022-08-19] MEDS: OMEGA-3 1000MG CAPSULE PO SCH ×2 (09:03→20:52)
[2022-08-19 16:25] VITALS: BP 104/56
[2022-08-19] MEDS: ARIPiprazole 15 MG TAB (AbiLIFY) PO SCH (20:52)
[2022-08-20 06:44] VITALS: BP 130/78
[2022-08-20] MEDS: FLUoxetine 20MG CAP PO SCH (08:22)
[2022-08-20] MEDS: NICOTINE 14 MG/24 HR TRANSDERMAL TD SCH (08:22)
[2022-08-20] MEDS: OMEGA-3 1000MG CAPSULE PO SCH ×2 (08:22→21:36)
[2022-08-20] MEDS: VITAMIN D 1,000 INTERNATIONAL UNITS TABLET PO SCH (08:22)
[2022-08-20 18:24] VITALS: BP 131/79
[2022-08-20] MEDS: ARIPiprazole 15 MG TAB (AbiLIFY) PO SCH (21:36)
[2022-08-21 06:30] VITALS: BP 111/64
[2022-08-21] MEDS: VITAMIN D 1,000 INTERNATIONAL UNITS TABLET PO SCH (08:34)
[2022-08-21] MEDS: OMEGA-3 1000MG CAPSULE PO SCH ×2 (08:35→20:57)
[2022-08-21] MEDS: FLUoxetine 20MG CAP PO SCH (08:36)
[2022-08-21] MEDS: NICOTINE 14 MG/24 HR TRANSDERMAL TD SCH (08:36)
[2022-08-21] MEDS: ACETAMINOPHEN TAB 650MG DOSE (2X325MG) PO PRN (08:40)
[2022-08-21 16:06] VITALS: BP 118/75
[2022-08-21] MEDS: ARIPiprazole 15 MG TAB (AbiLIFY) PO SCH (20:57)
[2022-08-22 06:11] VITALS: BP 119/84
[2022-08-22] MEDS: NICOTINE 14 MG/24 HR TRANSDERMAL TD SCH (08:27)
[2022-08-22] MEDS: OMEGA-3 1000MG CAPSULE PO SCH ×2 (08:27→21:05)
[2022-08-22] MEDS: FLUoxetine 20MG CAP PO SCH (08:27)
[2022-08-22] MEDS: VITAMIN D 1,000 INTERNATIONAL UNITS TABLET PO SCH (08:28)
[2022-08-22 17:27] VITALS: BP 119/72
[2022-08-22] MEDS: ARIPiprazole 15 MG TAB (AbiLIFY) PO SCH (21:05)
[2022-08-23 06:42] VITALS: BP 107/63
[2022-08-23] MEDS: FLUoxetine 20MG CAP PO SCH (08:08)
[2022-08-23] MEDS: VITAMIN D 1,000 INTERNATIONAL UNITS TABLET PO SCH (08:08)
[2022-08-23] MEDS: OMEGA-3 1000MG CAPSULE PO SCH ×2 (08:09→21:30)
[2022-08-23] MEDS: NICOTINE 14 MG/24 HR TRANSDERMAL TD SCH (08:09)
[2022-08-23] MEDS ORDERED: diphenhydrAMINE 25MG CAP PO ONE (15:30)
[2022-08-23 17:39] VITALS: BP 119/83
[2022-08-23] MEDS: MAALOX 30 ML SUSP *UDC PO PRN (21:30)
[2022-08-23] MEDS: ARIPiprazole 15 MG TAB (AbiLIFY) PO SCH (21:30)
[2022-08-24 06:00] VITALS: BP 144/93
[2022-08-24] MEDS: VITAMIN D 1,000 INTERNATIONAL UNITS TABLET PO SCH (08:47)
[2022-08-24] MEDS: OMEGA-3 1000MG CAPSULE PO SCH (08:47)
[2022-08-24] MEDS: FLUoxetine 20MG CAP PO SCH (08:47)
[2022-08-24] MEDS: NICOTINE 14 MG/24 HR TRANSDERMAL TD SCH (08:48)
[2022-08-24] MEDS ORDERED: NICO14PA TD (10:04)
[2022-08-24] MEDS ORDERED: FISH1CAP26 PO (10:04)
[2022-08-24] MEDS ORDERED: ABIL1TAB12 PO (10:04)
[2022-08-24] MEDS ORDERED: FLUO20CA22 PO (10:04)
== END 2022-08-24 11:46 | disposition home or self-care (01) | DRG 751 ==
LOC: M ED 10:46 → M ED INP 19:15 → M PSY 20:03
PROVIDERS: ADMIT Psychiatry & Neurology Psychiatry; ATTEND Student in an Organized Health Care Education/Training Program
DX: F23 Brief psychotic disorder (principal); E55.9 Vitamin D deficiency, unspecified; Z88.8 Allergy status to other drugs, medicaments and biological substances; Z79.899 Other long term (current) drug therapy; F17.200 Nicotine dependence, unspecified, uncomplicated; F41.9 Anxiety disorder, unspecified; F32.A Depression, unspecified; D72.829 Elevated white blood cell count, unspecified; Z79.52 Long term (current) use of systemic steroids

== ENCOUNTER 2024-06-13 18:39 | Emergency (ER) | payer MEDICAID, OTHER, SELFPAY ==
[~2024-06-13] VITALS: Ht 160 cm; Wt 68.2 kg
[~2024-06-13 18:39] MED LIST changes: +ABIL1TAB12 PO; +BUPR-597 PO; -BUPR300T92 PO; +CEFD1CAP9 PO; -CEFD300C41 PO; +FISH1CAP26 PO; +FLUO-365 PO; +GABA-1172 PO; -GABA-282 PO; -HYDR200T3 PO; +HYDR200T46 PO; +NICO14PA TD
[2024-06-13 19:42] LABS: HEMATOCRIT 42.9 % (36.0-47.0); HEMOGLOBIN 14.4 g/dl (12.0-15.5); MEAN CORPUSCULAR HEMOGLOBIN 32.3 pg (27.0-33.0); MEAN CORPUSCULAR HGB CONC 33.6 g/dl (32.0-36.5); MEAN CORPUSCULAR VOLUME 96.2 fl (80.0-96.0); PLATELET COUNT, AUTOMATED 217 10^3/uL (150-450); RED BLOOD COUNT 4.46 10^6/uL (4.00-5.40); WHITE BLOOD COUNT 10.7 10^3/uL (4.0-10.0)
[2024-06-13 19:50] LABS: PHENCYCLIDINE URINE NEGATIVE (NEGATIVE)
[2024-06-13 19:51] LABS: AMPHETAMINES LEVEL URINE NEGATIVE (NEGATIVE); BARBITURATES URINE NEGATIVE (NEGATIVE); BENZODIAZEPINES URINE NEGATIVE (NEGATIVE); CANNABINOIDS URINE NEGATIVE (NEGATIVE); COCAINE METABOLITE URINE NEGATIVE (NEGATIVE); METHADONE URINE NEGATIVE (NEGATIVE); OPIATES URINE NEGATIVE (NEGATIVE)
[2024-06-13 19:52] LABS: ETHYL ALCOHOL (ETHANOL) < 0.003 % (0.000-0.010)
[2024-06-13 19:54] LABS: ALBUMIN 3.9 G/DL (3.2-5.2); ALKALINE PHOSPHATASE 89 U/L (35-104); ALT/SGPT 26 U/L (7.0-40); AST/SGOT 22 U/L (<34); BILIRUBIN,DIRECT 0.2 MG/DL (<0.4); BILIRUBIN,TOTAL 0.6 MG/DL (0.3-1.2); BLOOD UREA NITROGEN 11 MG/DL (9-23); CALCIUM LEVEL 8.9 MG/DL (8.5-10.1); CARBON DIOXIDE LEVEL 22 MMOL/L (20-31); CHLORIDE LEVEL 110 MMOL/L (98-107); CREATININE FOR GFR 0.54 MG/DL (0.55-1.30); GLOMERULAR FILTRATION RATE > 60.0 (>58); GLUCOSE, FASTING 100 MG/DL (60-100); POTASSIUM SERUM 4.1 MMOL/L (3.5-5.1); SALICYLATE LEVEL < 3.0 MG/DL (<30); SODIUM LEVEL 142 MMOL/L (136-145); TOTAL PROTEIN 7.5 G/DL (5.7-8.2)
[2024-06-13 19:55] LABS: HCG, SERUM QUALITATIVE NEGATIVE (NEGATIVE)
[2024-06-13 19:56] LABS: THYROID STIMULATING HORMONE 1.267 uIU/ML (0.55-4.78)
[2024-06-13 21:29] VITALS: BP 116/71; TEMP 97.8; O2SAT 97
== END 2024-06-13 21:40 | disposition home or self-care (01) ==
LOC: M ED 18:39
DX: F43.0 Acute stress reaction (principal); F10.10 Alcohol abuse, uncomplicated; F17.200 Nicotine dependence, unspecified, uncomplicated; F19.10 Other psychoactive substance abuse, uncomplicated; Z88.8 Allergy status to other drugs, medicaments and biological substances; Z79.899 Other long term (current) drug therapy

== ENCOUNTER 2024-06-15 22:47 | Emergency (ER) | payer OTHER, SELFPAY ==
[~2024-06-15] VITALS: Ht 160 cm; Wt 68.2 kg
[2024-06-16 00:55] LABS: KETONE, URINE AUTO RFX 1+ mg/dL (NEGATIVE); LEUKOCYTE ESTERASE UR AUTO RFX 1+ (NEGATIVE); NITRITE, URINE AUTO RFX NEGATIVE (NEGATIVE); RBC, URINE AUTO RFX 1 /HPF (0-3); SQUAM EPITHELIAL CELL UR AURFX 1 /HPF (0-6); WBC, URINE AUTO RFX 1 /HPF (0-3)
[2024-06-16 06:12] VITALS: BP 128/75; TEMP 96.7; O2SAT 98
[2024-06-16] MEDS ORDERED: NITR-67 PO (06:33)
[2024-06-16] MEDS: NITROFURANTOIN (MACROBID) 100 MG CAP PO ONE (06:42)
[2024-06-20] MEDS ORDERED: METR-265 PO (08:24)
== END 2024-06-16 07:05 | disposition home or self-care (01) ==
LOC: M ED 22:47
DX: R30.0 Dysuria (principal); Z59.00 Homelessness unspecified; M32.9 Systemic lupus erythematosus, unspecified; I10 Essential (primary) hypertension; E55.9 Vitamin D deficiency, unspecified; E78.5 Hyperlipidemia, unspecified; F31.9 Bipolar disorder, unspecified; F32.A Depression, unspecified; Z87.442 Personal history of urinary calculi; Z79.899 Other long term (current) drug therapy

== ENCOUNTER 2024-06-17 20:12 | Emergency (ER) | payer OTHER, SELFPAY ==
[~2024-06-17] VITALS: Ht 160 cm; Wt 68.2 kg
[~2024-06-17 20:12] MED LIST changes: +NITR-67 PO
[2024-06-17 20:57] LABS: BASO # 0.1 10^3/uL (0.0-0.2); BASO % 0.6 % (0.0-1.0); EOS # 0.2 10^3/uL (0.0-0.5); EOS % 1.7 % (0.0-3.0); HEMATOCRIT 42.1 % (36.0-47.0); HEMOGLOBIN 14.5 g/dl (12.0-15.5); LYMPH # 2.2 10^3/uL (1.5-5.0); MEAN CORPUSCULAR HEMOGLOBIN 32.7 pg (27.0-33.0); MEAN CORPUSCULAR HGB CONC 34.4 g/dl (32.0-36.5); MEAN CORPUSCULAR VOLUME 94.8 fl (80.0-96.0); MONO # 0.8 10^3/uL (0.0-0.8); NEUTROPHILS # 6.9 10^3/uL (1.5-8.5); NEUTROPHILS % 67.4 % (36.0-66.0); PLATELET COUNT, AUTOMATED 237 10^3/uL (150-450); RED BLOOD COUNT 4.44 10^6/uL (4.00-5.40); WHITE BLOOD COUNT 10.2 10^3/uL (4.0-10.0)
[2024-06-17 21:08] LABS: KETONE, URINE AUTO RFX 1+ mg/dL (NEGATIVE); MUCUS, URINE RFX LARGE (NEGATIVE); NITRITE, URINE AUTO RFX NEGATIVE (NEGATIVE); RBC, URINE AUTO RFX 74 /HPF (0-3); SQUAM EPITHELIAL CELL UR AURFX 5 /HPF (0-6)
[2024-06-17 21:16] LABS: LEUKOCYTE ESTERASE UR AUTO RFX TRACE (NEGATIVE); WBC, URINE AUTO RFX 21 /HPF (0-3)
[2024-06-17 21:28] LABS: HCG, SERUM QUALITATIVE NEGATIVE (NEGATIVE)
[2024-06-17 21:34] LABS: LIPASE 29 U/L (12-53)
[2024-06-17 21:37] LABS: ALKALINE PHOSPHATASE 100 U/L (35-104); ALT/SGPT 42 U/L (7.0-40); AST/SGOT 40 U/L (<34); BILIRUBIN,DIRECT 0.2 MG/DL (<0.4); BILIRUBIN,TOTAL 0.7 MG/DL (0.3-1.2); BLOOD UREA NITROGEN 12 MG/DL (9-23); CALCIUM LEVEL 9.7 MG/DL (8.5-10.1); CARBON DIOXIDE LEVEL 26 MMOL/L (20-31); CHLORIDE LEVEL 105 MMOL/L (98-107); CREATININE FOR GFR 0.42 MG/DL (0.55-1.30); GLOMERULAR FILTRATION RATE > 60.0 (>58); GLUCOSE, FASTING 112 MG/DL (60-100); POTASSIUM SERUM 3.4 MMOL/L (3.5-5.1); SODIUM LEVEL 143 MMOL/L (136-145); TOTAL PROTEIN 7.7 G/DL (5.7-8.2)
[2024-06-18 06:24] VITALS: TEMP 97.3
[2024-06-18] MEDS: NS (Normal Saline) 0.9% 1,000 ML IV ONE (07:54)
[2024-06-18] MEDS ORDERED: SULF1TAB23 PO (08:43)
[2024-06-18 08:45] VITALS: BP 101/66; O2SAT 99
[2024-06-20] MEDS ORDERED: METR-265 PO (08:24)
== END 2024-06-18 09:30 | disposition home or self-care (01) ==
LOC: M ED 20:12
DX: R10.9 Unspecified abdominal pain (principal); N39.0 Urinary tract infection, site not specified; E55.9 Vitamin D deficiency, unspecified; F32.A Depression, unspecified; F31.9 Bipolar disorder, unspecified; M32.9 Systemic lupus erythematosus, unspecified; F17.200 Nicotine dependence, unspecified, uncomplicated; Z88.8 Allergy status to other drugs, medicaments and biological substances; Z79.899 Other long term (current) drug therapy

== ENCOUNTER 2024-06-19 11:38 | Emergency (ER) | payer OTHER, SELFPAY ==
[~2024-06-19] VITALS: Ht 160 cm; Wt 68.0 kg
[~2024-06-19 11:38] MED LIST changes: +SULF1TAB23 PO
[2024-06-19 12:00] VITALS: BP 129/83; TEMP 97.6; O2SAT 99
[2024-06-19 14:01] LABS: KETONE, URINE AUTO RFX 1+ mg/dL (NEGATIVE); LEUKOCYTE ESTERASE UR AUTO RFX 1+ (NEGATIVE); MUCUS, URINE RFX LARGE (NEGATIVE); NITRITE, URINE AUTO RFX NEGATIVE (NEGATIVE); RBC, URINE AUTO RFX 12 /HPF (0-3); SQUAM EPITHELIAL CELL UR AURFX 3 /HPF (0-6); WBC, URINE AUTO RFX 21 /HPF (0-3)
[2024-06-19 14:03] LABS: BASO # 0.1 10^3/uL (0.0-0.2); BASO % 0.7 % (0.0-1.0); EOS # 0.2 10^3/uL (0.0-0.5); EOS % 2.5 % (0.0-3.0); HEMATOCRIT 39.2 % (36.0-47.0); HEMOGLOBIN 13.1 g/dl (12.0-15.5); LYMPH # 2.4 10^3/uL (1.5-5.0); LYMPH % 27.7 % (24.0-44.0); MEAN CORPUSCULAR HEMOGLOBIN 32.4 pg (27.0-33.0); MEAN CORPUSCULAR HGB CONC 33.4 g/dl (32.0-36.5); MONO # 0.7 10^3/uL (0.0-0.8); NEUTROPHILS # 5.3 10^3/uL (1.5-8.5); NEUTROPHILS % 60.8 % (36.0-66.0); PLATELET COUNT, AUTOMATED 225 10^3/uL (150-450); RED BLOOD COUNT 4.04 10^6/uL (4.00-5.40); WHITE BLOOD COUNT 8.7 10^3/uL (4.0-10.0)
[2024-06-19 14:29] LABS: LIPASE 28 U/L (12-53)
[2024-06-19 14:33] LABS: ALBUMIN 3.6 G/DL (3.2-5.2); ALKALINE PHOSPHATASE 90 U/L (35-104); ALT/SGPT 42 U/L (7.0-40); AST/SGOT 47 U/L (<34); BILIRUBIN,DIRECT 0.2 MG/DL (<0.4); BILIRUBIN,TOTAL 0.6 MG/DL (0.3-1.2); BLOOD UREA NITROGEN 9 MG/DL (9-23); CALCIUM LEVEL 8.8 MG/DL (8.5-10.1); CARBON DIOXIDE LEVEL 25 MMOL/L (20-31); CHLORIDE LEVEL 106 MMOL/L (98-107); CREATININE FOR GFR 0.37 MG/DL (0.55-1.30); GLOMERULAR FILTRATION RATE > 60.0 (>58); GLUCOSE, FASTING 90 MG/DL (60-100); POTASSIUM SERUM 3.3 MMOL/L (3.5-5.1); SODIUM LEVEL 141 MMOL/L (136-145); TOTAL PROTEIN 7.1 G/DL (5.7-8.2)
[2024-06-19 14:35] LABS: HCG, SERUM QUALITATIVE NEGATIVE (NEGATIVE)
[2024-06-19 16:58] LABS: Trichomonas vaginalis (AMP) POSITIVE (NEGATIVE)
[2024-06-19 17:33] LABS: GC DNA AMPLIFICATION NEGATIVE (NEGATIVE)
[2024-06-20] MEDS ORDERED: METR-265 PO (08:24)
[2024-06-20] MEDS ORDERED: SULF1TAB23 PO (16:24)
== END 2024-06-19 19:06 | disposition home or self-care (01) ==
LOC: M ED 11:38
DX: N93.9 Abnormal uterine and vaginal bleeding, unspecified (principal); I10 Essential (primary) hypertension; E78.5 Hyperlipidemia, unspecified; F60.0 Paranoid personality disorder; F41.9 Anxiety disorder, unspecified; F32.A Depression, unspecified; Z88.8 Allergy status to other drugs, medicaments and biological substances; Z79.899 Other long term (current) drug therapy; Z79.2 Long term (current) use of antibiotics

== ENCOUNTER 2024-06-20 09:49 | Emergency (ER) | payer SELFPAY ==
[~2024-06-20] VITALS: Ht 160 cm; Wt 71.1 kg
[~2024-06-20 09:49] MED LIST changes: +METR-265 PO
[2024-06-20 14:43] VITALS: BP 121/66; TEMP 98.9; O2SAT 97
[2024-06-20] MEDS ORDERED: SULF1TAB23 PO (16:24)
[2024-06-20] MEDS: BACTRIM 160MG/800MG DS TAB PO ONE (16:30)
== END 2024-06-20 16:33 | disposition home or self-care (01) ==
LOC: EDBD 09:49 → M ED 09:49
DX: N39.0 Urinary tract infection, site not specified (principal); Z59.00 Homelessness unspecified; Z88.8 Allergy status to other drugs, medicaments and biological substances; Z79.2 Long term (current) use of antibiotics; Z79.899 Other long term (current) drug therapy

== ENCOUNTER 2024-06-27 12:02 | Emergency (ER) | payer SELFPAY ==
[~2024-06-27] VITALS: Ht 160 cm; Wt 68.1 kg
[2024-06-27 13:46] LABS: BASO % 0.3 % (0.0-1.0); EOS # 0.2 10^3/uL (0.0-0.5); EOS % 2.1 % (0.0-3.0); HEMATOCRIT 42.8 % (36.0-47.0); HEMOGLOBIN 14.6 g/dl (12.0-15.5); LYMPH # 2.1 10^3/uL (1.5-5.0); LYMPH % 24.4 % (24.0-44.0); MEAN CORPUSCULAR HGB CONC 34.1 g/dl (32.0-36.5); MEAN CORPUSCULAR VOLUME 96.8 fl (80.0-96.0); MONO # 0.6 10^3/uL (0.0-0.8); MONO % 7.2 % (2.0-8.0); NEUTROPHILS # 5.7 10^3/uL (1.5-8.5); NEUTROPHILS % 65.8 % (36.0-66.0); PLATELET COUNT, AUTOMATED 260 10^3/uL (150-450); RED BLOOD COUNT 4.42 10^6/uL (4.00-5.40); WHITE BLOOD COUNT 8.7 10^3/uL (4.0-10.0)
[2024-06-27 13:56] LABS: KETONE, URINE AUTO RFX NEGATIVE (NEGATIVE); MUCUS, URINE RFX SMALL (NEGATIVE); NITRITE, URINE AUTO RFX NEGATIVE (NEGATIVE); RBC, URINE AUTO RFX 10 /HPF (0-3); SQUAM EPITHELIAL CELL UR AURFX 8 /HPF (0-6)
[2024-06-27 13:59] LABS: LEUKOCYTE ESTERASE UR AUTO RFX 2+ (NEGATIVE); WBC, URINE AUTO RFX 11 /HPF (0-3)
[2024-06-27 14:11] LABS: BLOOD UREA NITROGEN 6 MG/DL (9-23); CALCIUM LEVEL 9.3 MG/DL (8.5-10.1); CARBON DIOXIDE LEVEL 27 MMOL/L (20-31); CHLORIDE LEVEL 107 MMOL/L (98-107); GLOMERULAR FILTRATION RATE > 60.0 (>58); GLUCOSE, FASTING 99 MG/DL (60-100); POTASSIUM SERUM 4.1 MMOL/L (3.5-5.1); SODIUM LEVEL 140 MMOL/L (136-145)
[2024-06-27 14:16] LABS: HCG, SERUM QUALITATIVE NEGATIVE (NEGATIVE)
[2024-06-27 14:55] LABS: Trichomonas vaginalis (AMP) POSITIVE (NEGATIVE)
[2024-06-27 15:28] LABS: GC DNA AMPLIFICATION NEGATIVE (NEGATIVE)
[2024-06-27] MEDS: metroNIDAZOLE (FLAGYL) 500MG TABLET PO ONE (17:29)
[2024-06-27 18:50] VITALS: BP 104/58; TEMP 98.1; O2SAT 98
== END 2024-06-27 19:08 | disposition home or self-care (01) ==
LOC: M ED 12:02 → EDBD 12:02 → M ED 19:08
DX: N93.8 Other specified abnormal uterine and vaginal bleeding (principal); A59.01 Trichomonal vulvovaginitis; N83.201 Unspecified ovarian cyst, right side; E78.5 Hyperlipidemia, unspecified; Z88.8 Allergy status to other drugs, medicaments and biological substances; Z79.899 Other long term (current) drug therapy; Z87.442 Personal history of urinary calculi